=== PATIENT | male | born 1945 | race Caucasian/White ===

== ENCOUNTER 2017-08-17 17:03 | Inpatient (IN) | payer MEDICARE, MEDICAID ==
--- NOTE | 2017-08-17 17:24 | ED Physician Chart ---
ED Chief Complaint/HPI - Patient Information Date Seen:: 08/17/17 Time Seen:: 17:05 Chief Complaint:: Pt is here for medical clearance for psych admission. History of Present Illness:: Pt has h/o schizophrenia and was brought in by ambulance from nursing facility because pt has been noticed to have aggressive behavior. Pt appears to be comfortable without distress. Pt denies any bodily pain or discomfort. Pt is not fully cooperative; thus, H & P are limited. Allergies:: Allergies Allergy/AdvReac Type Severity Reaction Status Date / Time MDX Penicillin [Penicillin] Allergy Verified 01/01/13 15:33 Vitals:: see Nurse Note. Historian:: Patient Family MD/PCP:: Dr. Cooper LMP:: N/A Review:: Nurse's Note Reviewed, Transfer documents Reviewed ED Review of Systems - Review of Systems General/Constitutional: No fever, No chills, No weight loss, No weakness, No edema, No loss of appetite Skin: No rash, No bruising Head: No headache, No light-headedness Eyes: No loss of vision, No pain ENT: No earache, No nasal drainage, No sore throat Neck: No neck pain, No swelling, No thyromegaly, No stiffness Cardio Vascular: No chest pain, No palpitations, No edema Pulmonary: No SOB, No cough, No wheezing GI: No nausea, No vomiting, No diarrhea, No pain G/U: No dysuria, No frequency, No hematuria Musculoskeletal: No bone or joint pain Endocrine: No polyuria, No polydipsia Psychiatric: Prior psych history, No depression, No anxiety, No suicidal ideation, No homicidal ideation, No auditory hallucination, No visual hallucination Hematopoietic: No bruising, No lymphadenopathy Allergic/Immuno: No urticaria, No angioedema Neurological: No syncope, No focal symptoms, No weakness, No paresthesia, No headache, No seizure, No dizziness ED Past Medical History - Past Medical History Past Medical History: HTN, DM, CHF, Dyslipidemia, Other (Atrial fibrillation, chronic anemia) Family History: Diabetes Melitus (Mother.), HTN (father) Social History: Non Smoker, No Alcohol, No Drug Use, Single, Care Facility Employment:: Retired. Surgical History: other (L hip surgery in the 70's) Psychiatricy History: Schizophrenia Medication: Reviewed Family Medical History - Family Member Mother History Unknown: Yes ED Physical Exam - Physical Examination General/Constitutional: Awake, Well-developed, well-nourished, Alert, No distress, Non-toxic appearing Other Gen/Cons comments:: Breathes comfortably, speaks clearly, but pt is not fully cooperative. Head: Atraumatic Eyes: Lids, conjuctiva normal, PERRL, EOMI Skin: No ecchymosis, Well hydrated, No lymphadenopathy ENMT: External ears, nose nl, Nasal exam nl, Oropharynx nl Neck: Nontender, Full ROM w/o pain, No JVD, No nuchal rigidity, No mass, No stridor Respiratory: Nl effort/Exclusion, Clear to Auscultation, No Wheeze/Rhonchi/Rales Cardio Vascular: RRR, No murmur, gallop, rubs GI: No tenderness/rebounding/guarding, No organomegaly, No hernia, Normal BS's, Nondistended, No mass/bruits Other GI comments:: Abdomen is obese but soft. Extremities: No tenderness or effusion, No edema Neuro/Psych: Alert/oriented (knows his name, that he is in hospital, and that it is August.) Other Neuro/Psych comments:: Spontaneous movements noticed in all 4 extremities. Pt does not cooperate for full neurological exam. ED Labs/Radiology/EKG Results - Lab Results Results: Laboratory Tests 08/17/17 08/17/17 08/17/17 17:41 17:41 17:41 WBC 6.1 D RBC 5.52 Hgb 13.7 Hct 42.8 MCV 77.6 L MCH 24.9 L MCHC Differential 32.1 RDW 15.3 Plt Count 204 MPV 8.9 Neutrophils % 61.0 Lymphocytes % 26.3 Monocytes % 8.9 Eosinophils % 3.5 Basophils % 0.3 PT 9.7 INR 0.93 PTT (Actin FS) 25.3 L Sodium 136 Potassium 4.1 Chloride 102 Carbon Dioxide 30.0 Anion Gap 8.1 BUN 11 Creatinine 1.0 Est GFR ( Amer) TNP Est GFR (Non-Af Amer) TNP BUN/Creatinine Ratio 11.0 Glucose 92 Calcium 9.4 Total Bilirubin 0.5 AST 26 ALT 30 Alkaline Phosphatase 80 Total Protein 7.2 Albumin 4.2 Globulin 3.0 Albumin/Globulin Ratio 1.4 Valproic Acid 08/17/17 17:41 WBC RBC Hgb Hct MCV MCH MCHC Differential RDW Plt Count MPV Neutrophils % Lymphocytes % Monocytes % Eosinophils % Basophils % PT INR PTT (Actin FS) Sodium Potassium Chloride Carbon Dioxide Anion Gap BUN Creatinine Est GFR ( Amer) Est GFR (Non-Af Amer) BUN/Creatinine Ratio Glucose Calcium Total Bilirubin AST ALT Alkaline Phosphatase Total Protein Albumin Globulin Albumin/Globulin Ratio Valproic Acid 12.2 L Urinalysis is pending. - EKG Interpretations EKG Time:: 17:30 Rate & Rhythm: NSR with VR 61 Comments:: RAD. No acute ischemic changes. ED Septic Shock - . Is Septic Shock (SBP<90, OR Lactate>4 mmol\L) present?: No ED Reassessment (Disposition) - Reassessment Reassessment:: 1820 Pt remains stable and comfortable. EKG and available lab findings have been reviewed with pt. Management plan has been discussed. Pt is medically cleared for Geropsych admission. In house physician Dr. Nassar is to follow on remaining lab result: urinalysis and to provide further medical care. - Diagnosis Diagnosis:: Schizophrenia with aggressive behavior. HTN, stable. DM, stable. - Patient Disposition Admitted to:: [facility] Admitting Medical Physician:: Abdullahi Nassar Admitting Psych Physician:: Navya Dodge Time:: 18:25 Condition at Disposition:: Stable
[2017-08-17 17:51] LABS: % BASOPHILS 0.3 % (0.0-2.0); % EOSINOPHILS 3.5 % (0.0-5.0); % LYMPHOCYTES 26.3 % (20.0-50.0); % MONOCYTES 8.9 % (2.0-10.0); EOSINOPHILE ABSOLUTE 0.2 Th/cmm (0.1-0.4); HEMATOCRIT 42.8 % (41.0-60); HEMOGLOBIN 13.7 gm/dL (12-16); LYMPHOCYTE ABSOLUTE 1.6 Th/cmm (1.5-3.0); MEAN CELL VOLUME 77.6 fl (80-99); MEAN CORPUSCULAR HEMOGLOBIN 24.9 pg (27.0-31.0); MEAN CORPUSCULAR HGB CONC 32.1 pg (28.0-36.0); MEAN PLATELET VOLUME 8.9 fl; MONOCYTE ABSOLUTE 0.5 Th/cmm (0.3-1.0); NEUTROPHILE ABSOLUTE 3.8 Th/cmm (1.8-8.0); PLATELET COUNT 204 Th/cmm (150-400); RED BLOOD COUNT 5.52 Mil/cmm (3.80-5.80); RED CELL DISTRIBUTION WIDTH 15.3 % (11.5-20.0)
[2017-08-17 17:54] LABS: WHITE BLOOD COUNT 6.1 Th/cmm (4.8-10.8)
[2017-08-17 18:02] LABS: INR 0.93 (0.5-1.4); PROTHROMBIN TIME (TEST) 9.7 SECONDS (9.5-11.5)
[2017-08-17 18:04] LABS: ALB/GLOB RATIO 1.4 (1.0-1.8); ALBUMIN 4.2 gm/dL (4.2-5.5); ALKALINE PHOSPHATASE 80 U/L (34-104); ANION GAP 8.1 (7.0-16.0); BILIRUBIN,TOTAL 0.5 mg/dL (0.3-1.0); BUN - UREA NITROGEN 11 mg/dL (7-25); CALCIUM SERUM 9.4 mg/dL (8.6-10.3); CHLORIDE 102 mEq/L (98-107); GLUCOSE 92 mg/dL (70-105); POTASSIUM SERUM 4.1 mEq/L (3.5-5.1); SGOT 26 U/L (13-39); SGPT/ALT 30 U/L (7-52); SODIUM SERUM 136 mEq/L (136-145); TOTAL PROTEIN,SERUM 7.2 gm/dL (6.0-8.3)
[2017-08-17 23:21] VITALS: BP 112/72
[2017-08-18] MEDS ORDERED: Ferrous Sulfate 325 MG TAB PO SCH (09:00)
[2017-08-18] MEDS: Fish Oil 1,000 MG SGL PO SCH ×2 (09:35→16:45)
[2017-08-18] MEDS: Potassium Chloride 10 mEq ER Tab PO SCH (09:41)
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
[2017-08-19] MEDS: Fish Oil 1,000 MG SGL PO SCH ×2 (08:37→16:58)
[2017-08-19] MEDS: Potassium Chloride 10 mEq ER Tab PO SCH (08:39)
--- NOTE | 2017-08-19 09:24 | General Progress Note ---
Subjective - Review of Systems Subjective: Patient is seen and examined. No new complaints. Objective - Results Result Diagrams: 08/17/17 17:41 08/17/17 17:41 Recent Labs: Laboratory Last Values WBC 6.1 Th/cmm (4.8-10.8) D 08/17/17 17:41 RBC 5.52 Mil/cmm (3.80-5.80) 08/17/17 17:41 Hgb 13.7 gm/dL (12-16) 08/17/17 17:41 Hct 42.8 % (41.0-60) 08/17/17 17:41 MCV 77.6 fl (80-99) L 08/17/17 17:41 MCH 24.9 pg (27.0-31.0) L 08/17/17 17:41 MCHC Differential 32.1 pg (28.0-36.0) 08/17/17 17:41 RDW 15.3 % (11.5-20.0) 08/17/17 17:41 Plt Count 204 Th/cmm (150-400) 08/17/17 17:41 MPV 8.9 fl 08/17/17 17:41 Neutrophils % 61.0 % (40.0-80.0) 08/17/17 17:41 Lymphocytes % 26.3 % (20.0-50.0) 08/17/17 17:41 Monocytes % 8.9 % (2.0-10.0) 08/17/17 17:41 Eosinophils % 3.5 % (0.0-5.0) 08/17/17 17:41 Basophils % 0.3 % (0.0-2.0) 08/17/17 17:41 PT 9.7 SECONDS (9.5-11.5) 08/17/17 17:41 INR 0.93 (0.5-1.4) 08/17/17 17:41 PTT (Actin FS) 25.3 SECONDS (26.0-38.0) L 08/17/17 17:41 Sodium 136 mEq/L (136-145) 08/17/17 17:41 Potassium 4.1 mEq/L (3.5-5.1) 08/17/17 17:41 Chloride 102 mEq/L (98-107) 08/17/17 17:41 Carbon Dioxide 30.0 mEq/L (21.0-31.0) 08/17/17 17:41 Anion Gap 8.1 (7.0-16.0) 08/17/17 17:41 BUN 11 mg/dL (7-25) 08/17/17 17:41 Creatinine 1.0 mg/dL (0.7-1.3) 08/17/17 17:41 Est GFR ( Amer) TNP 08/17/17 17:41 Est GFR (Non-Af Amer) TNP 08/17/17 17:41 BUN/Creatinine Ratio 11.0 08/17/17 17:41 Glucose 92 mg/dL (70-105) 08/17/17 17:41 Calcium 9.4 mg/dL (8.6-10.3) 08/17/17 17:41 Total Bilirubin 0.5 mg/dL (0.3-1.0) 08/17/17 17:41 AST 26 U/L (13-39) 08/17/17 17:41 ALT 30 U/L (7-52) 08/17/17 17:41 Alkaline Phosphatase 80 U/L (34-104) 08/17/17 17:41 Total Protein 7.2 gm/dL (6.0-8.3) 08/17/17 17:41 Albumin 4.2 gm/dL (4.2-5.5) 08/17/17 17:41 Globulin 3.0 gm/dL 08/17/17 17:41 Albumin/Globulin Ratio 1.4 (1.0-1.8) 08/17/17 17:41 Valproic Acid 12.2 ug/mL (50.0-100.0) L 08/17/17 17:41 - Physical Exam Vitals and I&O: Vital Signs Temp 96.5 F 08/19/17 05:43 Pulse 65 08/19/17 08:40 Resp 19 08/19/17 05:43 BP 125/76 08/19/17 08:40 Pulse Ox 99 08/19/17 05:43 Intake & Output 08/18/17 08/19/17 08/19/17 18:59 06:59 18:59 Intake Total 1500 180 Balance 1500 180 Intake: Oral 1500 180 Other: # Voids 4 2 # Bowel Movements 0 Active Medications: Current Medications Aspirin (Ecotrin) 81 mg PO DAILY [facility] Stop: 10/17/17 08:59 Last Admin: 08/18/17 09:35 Dose: 81 mg Atorvastatin Calcium (Lipitor) 40 mg PO HS [facility] Stop: 10/16/17 20:59 Last Admin: 08/18/17 21:38 Dose: 40 mg Carvedilol (Coreg) 3.125 mg PO BID [facility] Stop: 10/17/17 08:59 Last Admin: 08/19/17 08:37 Dose: 3.125 mg Clopidogrel Bisulfate (Plavix) 75 mg PO DAILY [facility] Stop: 10/17/17 08:59 Last Admin: 08/19/17 08:38 Dose: 75 mg Divalproex Sodium (Depakote Dr) 125 mg PO BID [facility] PRN Reason: Protocol Stop: 10/17/17 08:59 Last Admin: 08/19/17 08:40 Dose: 125 mg Docusate Sodium (Colace) 200 mg PO DAILY [facility] Stop: 10/17/17 08:59 Last Admin: 08/19/17 08:38 Dose: 200 mg Fish Oil ([place] 3) 1,000 mg PO BID [facility] Stop: 10/17/17 08:59 Last Admin: 08/19/17 08:37 Dose: 1,000 mg Furosemide (Lasix) 20 mg PO DAILY [facility] Stop: 10/17/17 08:59 Last Admin: 08/19/17 08:38 Dose: 20 mg Lisinopril (Zestril) 5 mg PO DAILY [facility] Stop: 10/17/17 08:59 Last Admin: 08/19/17 08:40 Dose: 5 mg Lorazepam (Ativan) 0.5 mg PO TID PRN; Protocol PRN Reason: Anxiety Stop: 10/16/17 20:15 Nitroglycerin (Nitrostat) 0.4 mg SL PRN PRN PRN Reason: Chest Pain Stop: 10/16/17 20:15 Potassium Chloride (Klor-Con) 10 meq PO DAILY [facility] Stop: 10/17/17 08:59 Last Admin: 08/19/17 08:39 Dose: 10 meq Risperidone (Risperdal) 1 mg PO BID [facility] PRN Reason: Protocol Stop: 10/17/17 08:59 Last Admin: 08/19/17 08:40 Dose: 1 mg Senna (Senna) 8.6 mg PO BID [facility] Stop: 10/17/17 08:59 Last Admin: 08/19/17 08:37 Dose: 8.6 mg General: Alert, Cooperative, No acute distress HEENT: Atraumatic, PERRLA, EOMI, Mucous membr. moist/pink Neck: Supple, JVD Cardiovascular: Regular rate, Normal S1, Normal S2 Lungs: Clear to auscultation Abdomen: Bowel sounds, Soft, Distended, Obese Extremities: Other (chronic venous stasis changes on his right leg.) Neurological: Other (right-sided weakness more pronounced from lower extremity than upper extremity.) Skin: Rash Psych/Mental Status: Other (labile mood.) Assessment/Plan - Assessment Assessment: Paroxysmal atrial fibrillation. Coronary artery disease status post stent placement. Hypertension. CVA with right-sided weakness. DJD. Psychotic disorder. Hyperlipidemia. History of congestive heart failure. High risk for fall. Chronic venous stasis changes on right lower extremity. Decline in self-care. - Plan Plan: Rate control. Beta shira. Statin. Nitrate. Anticoagulation therapy. Monitor vitals. Fall precaution. General nursing care. Psychiatric medication and followed by psychiatrist. Follow transportation consultant recommendation. Care plan reviewed and discussed with staff.
--- NOTE | 2017-08-20 02:05 | Progress Notes ---
DATE: 08/19/2017 SUBJECTIVE: Chart reviewed and the patient interviewed. Also discussed the patient's condition with the staff and reviewed records and labs. The patient still have episodes of irritability and agitation. Also, he is still aggressive and is still at times, threatening others. Also, he still has mood swings and at times seems to be calm and cooperative and other times is agitated. Otherwise, the patient is compliant with taking his medications and Risperdal was increased to 1 mg twice a day with no side effects. Also, continue to take Depakote in a dose of 125 mg twice a day. ASSESSMENT: The patient is still aggressive and can be dangerous to others. TREATMENT PLAN: Continue to monitor his behavior and his condition closely. Also, continue to work on his irritability and poor impulse control. Also, working on discharge plans and possible placement issue, but the patient also might return back to [facility]. JOB# [id number]
[2017-08-20] MEDS: Potassium Chloride 10 mEq ER Tab PO SCH (09:16)
[2017-08-20] MEDS: Fish Oil 1,000 MG SGL PO SCH ×2 (09:17→17:41)
--- NOTE | 2017-08-20 10:22 | General Progress Note ---
Subjective - Review of Systems Subjective: Patient is seen and examined. No new complaints. Eating his breakfast. Objective - Results Result Diagrams: 08/17/17 17:41 08/17/17 17:41 Recent Labs: Laboratory Last Values WBC 6.1 Th/cmm (4.8-10.8) D 08/17/17 17:41 RBC 5.52 Mil/cmm (3.80-5.80) 08/17/17 17:41 Hgb 13.7 gm/dL (12-16) 08/17/17 17:41 Hct 42.8 % (41.0-60) 08/17/17 17:41 MCV 77.6 fl (80-99) L 08/17/17 17:41 MCH 24.9 pg (27.0-31.0) L 08/17/17 17:41 MCHC Differential 32.1 pg (28.0-36.0) 08/17/17 17:41 RDW 15.3 % (11.5-20.0) 08/17/17 17:41 Plt Count 204 Th/cmm (150-400) 08/17/17 17:41 MPV 8.9 fl 08/17/17 17:41 Neutrophils % 61.0 % (40.0-80.0) 08/17/17 17:41 Lymphocytes % 26.3 % (20.0-50.0) 08/17/17 17:41 Monocytes % 8.9 % (2.0-10.0) 08/17/17 17:41 Eosinophils % 3.5 % (0.0-5.0) 08/17/17 17:41 Basophils % 0.3 % (0.0-2.0) 08/17/17 17:41 PT 9.7 SECONDS (9.5-11.5) 08/17/17 17:41 INR 0.93 (0.5-1.4) 08/17/17 17:41 PTT (Actin FS) 25.3 SECONDS (26.0-38.0) L 08/17/17 17:41 Sodium 136 mEq/L (136-145) 08/17/17 17:41 Potassium 4.1 mEq/L (3.5-5.1) 08/17/17 17:41 Chloride 102 mEq/L (98-107) 08/17/17 17:41 Carbon Dioxide 30.0 mEq/L (21.0-31.0) 08/17/17 17:41 Anion Gap 8.1 (7.0-16.0) 08/17/17 17:41 BUN 11 mg/dL (7-25) 08/17/17 17:41 Creatinine 1.0 mg/dL (0.7-1.3) 08/17/17 17:41 Est GFR ( Amer) TNP 08/17/17 17:41 Est GFR (Non-Af Amer) TNP 08/17/17 17:41 BUN/Creatinine Ratio 11.0 08/17/17 17:41 Glucose 92 mg/dL (70-105) 08/17/17 17:41 Calcium 9.4 mg/dL (8.6-10.3) 08/17/17 17:41 Total Bilirubin 0.5 mg/dL (0.3-1.0) 08/17/17 17:41 AST 26 U/L (13-39) 08/17/17 17:41 ALT 30 U/L (7-52) 08/17/17 17:41 Alkaline Phosphatase 80 U/L (34-104) 08/17/17 17:41 Total Protein 7.2 gm/dL (6.0-8.3) 08/17/17 17:41 Albumin 4.2 gm/dL (4.2-5.5) 08/17/17 17:41 Globulin 3.0 gm/dL 08/17/17 17:41 Albumin/Globulin Ratio 1.4 (1.0-1.8) 08/17/17 17:41 Valproic Acid 12.2 ug/mL (50.0-100.0) L 08/17/17 17:41 - Physical Exam Vitals and I&O: Vital Signs Temp 96.5 F 08/20/17 04:00 Pulse 57 08/20/17 09:17 Resp 18 08/20/17 04:00 BP 112/71 08/20/17 09:17 Pulse Ox 98 08/20/17 04:00 Intake & Output 08/19/17 08/20/17 08/20/17 18:59 06:59 18:59 Intake Total 1200 Balance 1200 Intake: Oral 1200 Other: # Bowel Movements 1 Active Medications: Current Medications Aspirin (Ecotrin) 81 mg PO DAILY [facility] Stop: 10/17/17 08:59 Last Admin: 08/20/17 09:16 Dose: 81 mg Atorvastatin Calcium (Lipitor) 40 mg PO HS [facility] Stop: 10/16/17 20:59 Last Admin: 08/19/17 21:10 Dose: 40 mg Carvedilol (Coreg) 3.125 mg PO BID [facility] Stop: 10/17/17 08:59 Last Admin: 08/19/17 16:58 Dose: 3.125 mg Clopidogrel Bisulfate (Plavix) 75 mg PO DAILY [facility] Stop: 10/17/17 08:59 Last Admin: 08/19/17 08:38 Dose: 75 mg Divalproex Sodium (Depakote Dr) 250 mg PO BID [facility] PRN Reason: Protocol Stop: 10/17/17 08:59 Last Admin: 08/20/17 09:16 Dose: 250 mg Docusate Sodium (Colace) 200 mg PO DAILY [facility] Stop: 10/17/17 08:59 Last Admin: 08/20/17 09:16 Dose: 200 mg Fish Oil ([place] 3) 1,000 mg PO BID [facility] Stop: 10/17/17 08:59 Last Admin: 08/20/17 09:17 Dose: 1,000 mg Furosemide (Lasix) 20 mg PO DAILY [facility] Stop: 10/17/17 08:59 Last Admin: 08/20/17 09:17 Dose: Not Given Lisinopril (Zestril) 5 mg PO DAILY [facility] Stop: 10/17/17 08:59 Last Admin: 08/20/17 09:17 Dose: Not Given Lorazepam (Ativan) 0.5 mg PO TID PRN; Protocol PRN Reason: Anxiety Stop: 10/16/17 20:15 Nitroglycerin (Nitrostat) 0.4 mg SL PRN PRN PRN Reason: Chest Pain Stop: 10/16/17 20:15 Potassium Chloride (Klor-Con) 10 meq PO DAILY [facility] Stop: 10/17/17 08:59 Last Admin: 08/20/17 09:16 Dose: 10 meq Risperidone (Risperdal) 1 mg PO BID [facility] PRN Reason: Protocol Stop: 10/17/17 08:59 Last Admin: 08/20/17 09:16 Dose: 1 mg Senna (Senna) 8.6 mg PO BID [facility] Stop: 10/17/17 08:59 Last Admin: 08/20/17 09:16 Dose: 8.6 mg General: Alert, Cooperative, No acute distress HEENT: Atraumatic, PERRLA, EOMI, Mucous membr. moist/pink Neck: Supple, JVD Cardiovascular: Regular rate, Normal S1, Normal S2 Lungs: Clear to auscultation Abdomen: Bowel sounds, Soft, Distended, Obese Extremities: Other (chronic venous stasis changes on his right leg.) Neurological: Other (right-sided weakness more pronounced from lower extremity than upper extremity.) Skin: Rash Psych/Mental Status: Other (labile mood.) Assessment/Plan - Assessment Assessment: Paroxysmal atrial fibrillation high risk for fall anticoagulation contraindicated. Coronary artery disease status post stent placement. Hypertension. CVA with right-sided weakness. DJD. Psychotic disorder. Hyperlipidemia. History of congestive heart failure. High risk for fall. Chronic venous stasis changes on right lower extremity. Decline in self-care. - Plan Plan: Rate control. Beta shira. Statin. Nitrate. Anticoagulation therapy with asa. Monitor vitals. Fall precaution. General nursing care. Psychiatric medication and followed by psychiatrist. Follow mobile sales consultant recommendation. Care plan reviewed and discussed with staff.
--- NOTE | 2017-08-20 23:43 | Progress Notes ---
DATE: 08/20/2017 SUBJECTIVE: Chart reviewed and patient interviewed. Also discussed the patient's condition with the staff and reviewed records and labs. The patient's affect is slightly brighter, but the patient is still at times seems to be slightly confused. The patient seems to be less argumentative and easier to redirect him. He denies any intention to harm himself or others. Depakote blood level came back to be 12.2, which is below therapeutic level. ASSESSMENT: The patient is still agitated and psychotic. TREATMENT PLAN: We will continue monitoring his behavior and his condition closely. Also, increase Depakote to 250 mg twice a day and we will continue to follow up closely. JOB# [id number]
[2017-08-21] MEDS: Fish Oil 1,000 MG SGL PO SCH ×2 (08:46→16:05)
[2017-08-21] MEDS: Potassium Chloride 10 mEq ER Tab PO SCH (08:48)
--- NOTE | 2017-08-21 10:30 | General Progress Note ---
Subjective - Review of Systems Subjective: Patient is seen and examined. No new complaints. Objective - Results Result Diagrams: 08/17/17 17:41 08/17/17 17:41 Recent Labs: Laboratory Last Values WBC 6.1 Th/cmm (4.8-10.8) D 08/17/17 17:41 RBC 5.52 Mil/cmm (3.80-5.80) 08/17/17 17:41 Hgb 13.7 gm/dL (12-16) 08/17/17 17:41 Hct 42.8 % (41.0-60) 08/17/17 17:41 MCV 77.6 fl (80-99) L 08/17/17 17:41 MCH 24.9 pg (27.0-31.0) L 08/17/17 17:41 MCHC Differential 32.1 pg (28.0-36.0) 08/17/17 17:41 RDW 15.3 % (11.5-20.0) 08/17/17 17:41 Plt Count 204 Th/cmm (150-400) 08/17/17 17:41 MPV 8.9 fl 08/17/17 17:41 Neutrophils % 61.0 % (40.0-80.0) 08/17/17 17:41 Lymphocytes % 26.3 % (20.0-50.0) 08/17/17 17:41 Monocytes % 8.9 % (2.0-10.0) 08/17/17 17:41 Eosinophils % 3.5 % (0.0-5.0) 08/17/17 17:41 Basophils % 0.3 % (0.0-2.0) 08/17/17 17:41 PT 9.7 SECONDS (9.5-11.5) 08/17/17 17:41 INR 0.93 (0.5-1.4) 08/17/17 17:41 PTT (Actin FS) 25.3 SECONDS (26.0-38.0) L 08/17/17 17:41 Sodium 136 mEq/L (136-145) 08/17/17 17:41 Potassium 4.1 mEq/L (3.5-5.1) 08/17/17 17:41 Chloride 102 mEq/L (98-107) 08/17/17 17:41 Carbon Dioxide 30.0 mEq/L (21.0-31.0) 08/17/17 17:41 Anion Gap 8.1 (7.0-16.0) 08/17/17 17:41 BUN 11 mg/dL (7-25) 08/17/17 17:41 Creatinine 1.0 mg/dL (0.7-1.3) 08/17/17 17:41 Est GFR ( Amer) TNP 08/17/17 17:41 Est GFR (Non-Af Amer) TNP 08/17/17 17:41 BUN/Creatinine Ratio 11.0 08/17/17 17:41 Glucose 92 mg/dL (70-105) 08/17/17 17:41 Calcium 9.4 mg/dL (8.6-10.3) 08/17/17 17:41 Total Bilirubin 0.5 mg/dL (0.3-1.0) 08/17/17 17:41 AST 26 U/L (13-39) 08/17/17 17:41 ALT 30 U/L (7-52) 08/17/17 17:41 Alkaline Phosphatase 80 U/L (34-104) 08/17/17 17:41 Total Protein 7.2 gm/dL (6.0-8.3) 08/17/17 17:41 Albumin 4.2 gm/dL (4.2-5.5) 08/17/17 17:41 Globulin 3.0 gm/dL 08/17/17 17:41 Albumin/Globulin Ratio 1.4 (1.0-1.8) 08/17/17 17:41 Valproic Acid 12.2 ug/mL (50.0-100.0) L 08/17/17 17:41 - Physical Exam Vitals and I&O: Vital Signs Temp 98.4 F 08/21/17 06:23 Pulse 81 08/21/17 08:48 Resp 20 08/21/17 06:23 BP 139/84 08/21/17 08:48 Pulse Ox 97 08/21/17 06:23 Intake & Output 08/20/17 08/21/17 08/21/17 18:59 06:59 18:59 Intake Total 120 Balance 120 Intake: Oral 120 Other: # Voids 3 # Bowel Movements 1 Active Medications: Current Medications Aspirin (Ecotrin) 81 mg PO DAILY JUDE Stop: 10/17/17 08:59 Last Admin: 08/21/17 08:47 Dose: 81 mg Atorvastatin Calcium (Lipitor) 40 mg PO HS JUDE Stop: 10/16/17 20:59 Last Admin: 08/20/17 20:58 Dose: 40 mg Carvedilol (Coreg) 3.125 mg PO BID JUDE Stop: 10/17/17 08:59 Last Admin: 08/21/17 08:48 Dose: 3.125 mg Clopidogrel Bisulfate (Plavix) 75 mg PO DAILY JUDE Stop: 10/17/17 08:59 Last Admin: 08/21/17 08:46 Dose: 75 mg Divalproex Sodium (Depakote Dr) 250 mg PO BID [facility] PRN Reason: Protocol Stop: 10/17/17 08:59 Last Admin: 08/21/17 08:48 Dose: 250 mg Docusate Sodium (Colace) 200 mg PO DAILY JUDE Stop: 10/17/17 08:59 Last Admin: 08/21/17 08:46 Dose: 200 mg Fish Oil ([place] 3) 1,000 mg PO BID JUDE Stop: 10/17/17 08:59 Last Admin: 08/21/17 08:46 Dose: 1,000 mg Furosemide (Lasix) 20 mg PO DAILY [facility] Stop: 10/17/17 08:59 Last Admin: 08/21/17 08:47 Dose: 20 mg Lisinopril (Zestril) 5 mg PO DAILY [facility] Stop: 10/17/17 08:59 Last Admin: 08/20/17 09:17 Dose: Not Given Lorazepam (Ativan) 0.5 mg PO TID PRN; Protocol PRN Reason: Anxiety Stop: 10/16/17 20:15 Nitroglycerin (Nitrostat) 0.4 mg SL PRN PRN PRN Reason: Chest Pain Stop: 10/16/17 20:15 Potassium Chloride (Klor-Con) 10 meq PO DAILY [facility] Stop: 10/17/17 08:59 Last Admin: 08/21/17 08:48 Dose: 10 meq Risperidone (Risperdal) 1 mg PO BID JUDE PRN Reason: Protocol Stop: 10/17/17 08:59 Last Admin: 08/21/17 08:48 Dose: 1 mg Senna (Senna) 8.6 mg PO BID [facility] Stop: 10/17/17 08:59 Last Admin: 08/21/17 08:48 Dose: 8.6 mg General: Alert, Cooperative, No acute distress HEENT: Atraumatic, PERRLA, EOMI, Mucous membr. moist/pink Neck: Supple, JVD Cardiovascular: Regular rate, Normal S1, Normal S2 Lungs: Clear to auscultation Abdomen: Bowel sounds, Soft, Distended, Obese Extremities: Other (chronic venous stasis changes on his right leg.) Neurological: Other (right-sided weakness more pronounced from lower extremity than upper extremity.) Skin: Rash Psych/Mental Status: Other (labile mood.) Assessment/Plan - Assessment Assessment: Paroxysmal atrial fibrillation high risk for fall anticoagulation contraindicated. Coronary artery disease status post stent placement. Hypertension. CVA with right-sided weakness. DJD. Psychotic disorder. Hyperlipidemia. History of congestive heart failure. High risk for fall. Chronic venous stasis changes on right lower extremity. Decline in self-care. - Plan Plan: Rate control. Beta shira. Simvastatin. Nitrate. Anticoagulation therapy. Monitor vitals and behavior. Fall precaution. General nursing care. Psychiatric medication and follow up on psychiatrist recommendations. Care plan reviewed and discussed with staff.
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
== END 2017-08-21 17:10 | disposition home or self-care (01) | DRG 885 ==
LOC: ER 17:03 → GERO 19:24 → UNDOADMIN 19:24 → UNDODISIN 08-21 17:10
PROVIDERS: ADMIT Psychiatry & Neurology Psychiatry; ATTEND Psychiatry & Neurology Psychiatry
DX: F31.64 Bipolar disorder, current episode mixed, severe, with psychotic features (principal); I48.0 Paroxysmal atrial fibrillation; I50.9 Heart failure, unspecified; I11.0 Hypertensive heart disease with heart failure; E11.9 Type 2 diabetes mellitus without complications; I69.351 Hemiplegia and hemiparesis following cerebral infarction affecting right dominant side; D64.9 Anemia, unspecified; E78.5 Hyperlipidemia, unspecified; I25.10 Atherosclerotic heart disease of native coronary artery without angina pectoris; M19.90 Unspecified osteoarthritis, unspecified site; I87.8 Other specified disorders of veins; K27.9 Peptic ulcer, site unspecified, unspecified as acute or chronic, without hemorrhage or perforation; N40.0 Benign prostatic hyperplasia without lower urinary tract symptoms; Z88.0 Allergy status to penicillin; Z83.3 Family history of diabetes mellitus; Z82.49 Family history of ischemic heart disease and other diseases of the circulatory system; Z91.81 History of falling; Z95.5 Presence of coronary angioplasty implant and graft; Z99.3 Dependence on wheelchair
CPT/HCPCS: 36415-UA; 80053-TC; 80164-TC; 85025-TC; 85610-TC; 93005; Z7610

== ENCOUNTER 2018-03-20 16:14 | Inpatient (IN) | payer MEDICARE, MEDICAID ==
--- NOTE | 2018-03-20 16:59 | ED Physician Chart ---
ED Chief Complaint/HPI - Patient Information Date Seen:: 03/20/18 Time Seen:: 16:25 Chief Complaint:: Leg Redness History of Present Illness:: onset x 2 weeks of increasing LE redness, erythema, pain, and swelling; no report of trauma, H/As, S/T, neck pain, C/P, SOB, cough, Abd. Pain, A/N/V/D/C, fever, chills, or urinary s/s Allergies:: Allergies Allergy/AdvReac Type Severity Reaction Status Date / Time clonazepam [From Klonopin] Allergy Verified 03/20/18 16:34 Penicillins [PCN] Allergy Verified 08/17/17 18:30 tramadol Allergy Verified 03/20/18 16:34 Vitals:: Vital Signs - 8 hr 03/20/18 16:26 Temp 99.8 F HR 114 RR 23 BP 147/81 O2 Sat % 97 Historian:: Patient, EMS Review:: Nurse's Note Reviewed, Old Chart Reviewed, EMS run form Reviewed <Bright Salgado - Last Filed: 03/20/18 19:11> - Patient Information Allergies:: Allergies Allergy/AdvReac Type Severity Reaction Status Date / Time clonazepam [From Klonopin] Allergy Verified 03/20/18 16:34 Penicillins [PCN] Allergy Verified 08/17/17 18:30 tramadol Allergy Verified 03/20/18 16:34 Vitals:: Vital Signs - 8 hr 03/20/18 03/20/18 16:26 18:55 Temp 99.8 F 99.6 F HR 114 103 RR 23 20 BP 147/81 163/124 O2 Sat % 97 96 <Shobha Alex - Last Filed: 03/20/18 20:43> ED Review of Systems - Review of Systems General/Constitutional: No fever, No chills, No weight loss, No weakness, No diaphoresis, No edema, No loss of appetite Skin: Skin lesions, Rash, No bruising Head: No headache, No light-headedness Eyes: No loss of vision, No pain, No diplopia ENT: No earache, No nasal drainage, No sore throat, No tinnitus Neck: No neck pain, No swelling, No thyromegaly, No stiffness, No mass noted Cardio Vascular: No chest pain, No palpitations, No PND, No orthopnea, edema Pulmonary: No SOB, No cough, No sputum, No wheezing GI: No nausea, No vomiting, No diarrhea, No pain, No melena, No hematochezia, No constipation, No hematemesis G/U: No dysuria, No frequency, No hematuria, No nacturia Musculoskeletal: No bone or joint pain, No back pain, No muscle pain Endocrine: No polyuria, No polydipsia Psychiatric: No prior psych history, No depression, No anxiety, No suicidal ideation, No homicidal ideation, No auditory hallucination, No visual hallucination Hematopoietic: No bruising, No lymphadenopathy Allergic/Immuno: No urticaria, No angioedema Neurological: No syncope, No focal symptoms, No weakness, No paresthesia, No headache, No seizure, No dizziness, No confusion, No vertigo <Bright Salgado - Last Filed: 03/20/18 19:11> ED Past Medical History - Past Medical History Obtainable: Yes Past Medical History: HTN, CHF, Dyslipidemia, Seizures, Arthritis Family History: HTN Social History: Smoker, No Alcohol, No Drug Use, Single, Care Facility Surgical History: None Psychiatricy History: None Medication: Reviewed <Brihgt Salgado Last Filed: 03/20/18 19:11> Family Medical History - Family Member Mother History Unknown: Yes Ethnicity: Unknown Living Status: Unknown Hx Family Cancer: (Unknown) Hx Family Coronary Artery Disease: (Unknown) Hx Family Congestive Heart Failure: (Unknown) Hx Family Hypertension: (Unknown) Hx Family Stroke: (Unknown) Hx Family Diabetes: (Unknown) Hx Family Seizures: (Unknown) Hx Family Dementia: (Unknown) Hx Family AIDS: (Unknown) Hx Family HIV: No Hx Family COPD: (Unknown) Hx Family Hepatitis: (Unknown) Hx Family Psychiatric Problems: (Unknown) Hx Family Tuberculosis: (Unknown) <BrendaBright vázquez Last Filed: 03/20/18 19:11> ED Physical Exam - Physical Examination General/Constitutional: Awake, Well-developed, well-nourished, Alert, No distress, GCS 15, Non-toxic appearing, Ambulatory Head: Atraumatic Eyes: Lids, conjuctiva normal, PERRL, EOMI Skin: No rash, No skin lesions, No ecchymosis, Well hydrated, No lymphadenopathy Other Skin comments:: + Bilateral LE Cellulitis; good NV functions ENMT: External ears, nose nl, TM canals nl, Nasal exam nl, Lips, teeth, gums nl , Oropharynx nl, Tonsils nl Neck: Nontender, Full ROM w/o pain, No JVD, No nuchal rigidity, No bruit, No mass, No stridor Other Neck comments:: no meningeal signs; supple; no cervical tenderness Respiratory: Nl effort/Exclusion, Clear to Auscultation, No Wheeze/Rhonchi/Rales Cardio Vascular: RRR, No murmur, gallop, rubs, NL S1 S2, Carotid/Femoral/Distal pulses equal bilaterally GI: No tenderness/rebounding/guarding, No organomegaly, No hernia, Normal BS's, Nondistended, No mass/bruits, No McBurney tenderness Other GI comments:: no pulsatile masses : No CVA tenderness Extremities: No tenderness or effusion, Full ROM, normal strength in all extremities, No edema, Normal digits & nails Neuro/Psych: Alert/oriented, DTR's symmetric, Normal sensory exam, Normal motor strength, Judgement/insight normal, Mood normal, Normal gait, No focal deficits Misc: Normal back, No paraspinal tenderness <Bright Salgado - Last Filed: 03/20/18 19:11> ED Labs/Radiology/EKG Results - Lab Results Comments:: U/A: + Pyuria; Na+: 133 - Radiology Results Comments:: no DVT - EKG Interpretations EKG Time:: 16:41 Rate & Rhythm: 107; ST Comments:: non-specific st-t changes <Bright Salgado - Last Filed: 03/20/18 19:11> - Lab Results Results: Laboratory Tests 03/20/18 03/20/18 03/20/18 16:48 16:48 16:48 WBC 8.8 RBC 4.72 Hgb 12.0 Hct 36.5 L MCV 77.2 L MCH 25.4 L MCHC Differential 32.9 RDW 16.2 Plt Count 307 MPV 7.9 Neutrophils % 70.5 Lymphocytes % 15.8 L Monocytes % 9.4 Eosinophils % 3.8 Basophils % 0.5 PT 9.8 INR 0.94 PTT (Actin FS) 25.4 L Sodium 133 L Potassium 4.5 Chloride 99 Carbon Dioxide 25.8 Anion Gap 12.7 BUN 25 Creatinine 1.2 Est GFR ( Amer) TNP Est GFR (Non-Af Amer) TNP BUN/Creatinine Ratio 20.8 Glucose 110 H Whole Bld Lactic Acid Calcium 9.0 Total Bilirubin 0.4 AST 25 ALT 20 Alkaline Phosphatase 70 Creatine Kinase 510 H CK-MB (CK-2) 4.6 Troponin I Total Protein 7.3 Albumin 3.9 L Globulin 3.4 Albumin/Globulin Ratio 1.2 Urine Source Urine Color Urine Clarity Urine pH Ur Specific [place] Urine Protein Urine Glucose (UA) Urine Ketones Urine Blood Urine Nitrate Urine Bilirubin Urine Urobilinogen Ur Leukocyte Esterase Urine RBC Urine WBC Ur Epithelial Cells Urine Bacteria 03/20/18 03/20/18 03/20/18 16:48 16:48 17:00 WBC RBC Hgb Hct MCV MCH MCHC Differential RDW Plt Count MPV Neutrophils % Lymphocytes % Monocytes % Eosinophils % Basophils % PT INR PTT (Actin FS) Sodium Potassium Chloride Carbon Dioxide Anion Gap BUN Creatinine Est GFR ( Amer) Est GFR (Non-Af Amer) BUN/Creatinine Ratio Glucose Whole Bld Lactic Acid 1.60 Calcium Total Bilirubin AST ALT Alkaline Phosphatase Creatine Kinase CK-MB (CK-2) Troponin I 0.05 Total Protein Albumin Globulin Albumin/Globulin Ratio Urine Source [place] Urine Color YELLOW Urine Clarity CLEAR Urine pH 6.0 Ur Specific [place] 1.015 Urine Protein NEGATIVE Urine Glucose (UA) NEGATIVE Urine Ketones NEGATIVE Urine Blood NEGATIVE Urine Nitrate NEGATIVE Urine Bilirubin NEGATIVE Urine Urobilinogen 0.2 Ur Leukocyte Esterase TRACE H Urine RBC 0-2 H Urine WBC 2-5 Ur Epithelial Cells OCCASIONAL Urine Bacteria NONE SEEN <Shobha Alex - Last Filed: 03/20/18 20:43> ED Assessment - Assessment Assessment/Comments:: verbal order of the bilateral lower extremity ultrasound is negative for deep venous thrombosis per video technician. Kyaw Blanc call out to Dr. Tompkins to admit this patient. Valproic acid was added onto the blood work. 19:51 p.m. Kyaw Blanc phone call to Dr. Tompkins at 19:58 p.m. to admit this patient. We are also calling [facility] since it lists that he takes Lorazepam and that he is allergic to Clonazepam. JMartello M.D. The phone lines are being changed over. We are repaging Dr. Tompkins to call us back on our cell phones. Verified with Catherine Kilpatrick (Jessica) that they do not give him anything else besides Depakote and Risperdal in the morning and [place] 10/325 every 6 hours. 20:40 p.m. Kyaw Tompkins answered our page at 20:42 p.m. He will admit the patient with the diagnoses of cellulitis and fever. Kyaw Blanc <Shobha Alex - Last Filed: 03/20/18 20:43> ED Septic Shock - . Is Septic Shock (SBP<90, OR Lactate>4 mmol\L) present?: No - <6hrs of presentation: Vital Signs: Vital Signs - 8 hr 03/20/18 16:26 Temp 99.8 F HR 114 RR 23 BP 147/81 O2 Sat % 97 <Bright Salgado - Last Filed: 03/20/18 19:11> - . Is Septic Shock (SBP<90, OR Lactate>4 mmol\L) present?: No - <6hrs of presentation: Vital Signs: Vital Signs - 8 hr 03/20/18 03/20/18 16:26 18:55 Temp 99.8 F 99.6 F HR 114 103 RR 23 20 BP 147/81 163/124 O2 Sat % 97 96 <Shobha Alex - Last Filed: 03/20/18 20:43> ED Reassessment (Disposition) - Reassessment Reassessment Condition:: Improved - Diagnosis Diagnosis:: Cellulitis; Hyponatremia; UTI <Bright Salgado - Last Filed: 03/20/18 19:11> - Diagnosis Diagnosis:: Coronary artery Disesase Hypertension Psychotic Disorder Wheelchair bound Chronic venous stasis changes of right lower extremity <Shobha Alex - Last Filed: 03/20/18 20:43>
[2018-03-20 17:05] LABS: % BASOPHILS 0.5 % (0.0-2.0); % EOSINOPHILS 3.8 % (0.0-5.0); % LYMPHOCYTES 15.8 % (20.0-50.0); % MONOCYTES 9.4 % (2.0-10.0); % NEUTROPHILS 70.5 % (40.0-80.0); EOSINOPHILE ABSOLUTE 0.3 Th/cmm (0.1-0.4); HEMATOCRIT 36.5 % (41.0-60); LYMPHOCYTE ABSOLUTE 1.4 Th/cmm (1.5-3.0); MEAN CELL VOLUME 77.2 fl (80-99); MEAN CORPUSCULAR HEMOGLOBIN 25.4 pg (27.0-31.0); MEAN CORPUSCULAR HGB CONC 32.9 pg (28.0-36.0); MEAN PLATELET VOLUME 7.9 fl; MONOCYTE ABSOLUTE 0.8 Th/cmm (0.3-1.0); NEUTROPHILE ABSOLUTE 6.3 Th/cmm (1.8-8.0); PLATELET COUNT 307 Th/cmm (150-400); RED BLOOD COUNT 4.72 Mil/cmm (3.80-5.80); RED CELL DISTRIBUTION WIDTH 16.2 % (11.5-20.0); WHITE BLOOD COUNT 8.8 Th/cmm (4.8-10.8)
[2018-03-20 17:12] LABS: URINE MICROSCOPIC INDICATED? YES; URINE SOURCE MIDSTREAM
[2018-03-20 17:14] LABS: URINE BILIRUBIN NEGATIVE (NEGATIVE); URINE BLOOD NEGATIVE (NEGATIVE); URINE GLUCOSE (UA) NEGATIVE (NEGATIVE); URINE KETONE NEGATIVE (NEGATIVE); URINE LEUKOCYTE ESTERASE TRACE (NEGATIVE); URINE NITRATE NEGATIVE (NEGATIVE); URINE PROTEIN NEGATIVE (NEGATIVE); URINE UROBILINOGEN 0.2 E.U./dL (0.2 - 1.0)
[2018-03-20 17:15] LABS: INR 0.94 (0.5-1.4); PROTHROMBIN TIME (TEST) 9.8 SECONDS (9.5-11.5)
[2018-03-20 17:25] LABS: ALB/GLOB RATIO 1.2 (1.0-1.8); ALBUMIN 3.9 gm/dL (4.2-5.5); ALKALINE PHOSPHATASE 70 U/L (34-104); ANION GAP 12.7 (7.0-16.0); BILIRUBIN,TOTAL 0.4 mg/dL (0.3-1.0); BUN - UREA NITROGEN 25 mg/dL (7-25); CARBON DIOXIDE 25.8 mEq/L (21.0-31.0); CHLORIDE 99 mEq/L (98-107); CREATININE - SERUM 1.2 mg/dL (0.7-1.3); CREATININE KINASE 510 U/L (30-223); GLUCOSE 110 mg/dL (70-105); POTASSIUM SERUM 4.5 mEq/L (3.5-5.1); SGOT 25 U/L (13-39); SGPT/ALT 20 U/L (7-52); SODIUM SERUM 133 mEq/L (136-145); TOTAL PROTEIN,SERUM 7.3 gm/dL (6.0-8.3)
[2018-03-20 17:34] LABS: URINE CLARITY CLEAR (CLEAR); URINE COLOR YELLOW
[2018-03-20 17:35] LABS: URINE BACTERIA NONE SEEN /hpf (NONE SEEN); URINE EPITHELIAL CELLS OCCASIONAL /lpf (FEW); URINE RBC 0-2 /hpf (0-5)
[2018-03-20] MEDS ORDERED: Haloperidol Lactate 5 mg/mL 1mL Vial IVP ONE (18:12)
[2018-03-20] MEDS ORDERED: Haloperidol Lactate 5 mg/mL 1mL Vial ONE (18:39)
[2018-03-20] MEDS ORDERED: Bacitracin pkt 1 gm Pkt TP STA (20:33)
[2018-03-20] MEDS ORDERED: STERILE WATER FOR IRRIGATION IR ONE (20:34)
[2018-03-20] MEDS ORDERED: Bacitracin pkt 1 gm Pkt TP ONE (20:34)
[2018-03-20] MEDS ORDERED: Hydrocodone/APAP 10 mg/325 mg Tab PO STA (20:36)
[2018-03-20] MEDS ORDERED: Hydrocodone/APAP 10 mg/325 mg Tab ONE (20:47)
[2018-03-20] MEDS ORDERED: Ipratropium Neb 0.5 mg/2.5 mL UD HHN PRN (22:24)
[2018-03-20] MEDS ORDERED: Maalox 30 mL Cup PO PRN (22:24)
[2018-03-20] MEDS ORDERED: Diltiazem 5 mg/mL 5mL Vial IVP PRN (22:24)
[2018-03-20] MEDS ORDERED: guaiFENesin 200 MG/10 ML UDC PO PRN (22:24)
[2018-03-20] MEDS ORDERED: Albuterol Nebulizer 2.5mg/3mL HHN PRN (22:24)
[2018-03-20 22:39] VITALS: BP 130/76
[2018-03-21] MEDS: Levofloxacin 500mg/100mL 500 MG/100 ML BAG IV SCH (00:21)
[2018-03-21] MEDS: Hydrocodone/APAP 10 mg/325 mg Tab PO PRN (02:17)
[2018-03-21] MEDS: metroNIDAZOLE 500mg/NS 100mL 500 MG/100 ML BAG IV SCH ×3 (05:31→22:18)
[2018-03-21] MEDS ORDERED: Non-Formulary Item 1 EA (Valbenazine Tosylate [Ingrezza] 40 MG) PO SCH (09:00)
--- NOTE | 2018-03-21 09:27 | Diagnostic Imaging Report ---
Exam: Ultrasound examination deep venous circulation lower extremity is bilaterally. HISTORY: DVT. Findings: Real-time ultrasound examination of lower extremities was performed multiple planes utilizing color Doppler technique. The study demonstrates normal compressibility and augmentation of the deep venous system right lower extremity. The posterior tibial vein was not visualized. There is limited examination of the left lower extremity patient was uncooperative and exam was terminated. IMPRESSION: Essentially unremarkable examination of the right lower extremity. Incomplete examination of the left lower extremity . Follow-up examination is recommended.
--- NOTE | 2018-03-21 09:27 | Diagnostic Imaging Report ---
Portable chest x-ray Time: 6039 hours History: Pain Allowing for portable technique the heart size is normal. No focal pulmonary parenchymal processes. No hilar or mediastinal abnormalities. Impression: No acute abnormalities.
[2018-03-21] MEDS: Fish Oil 1,000 MG SGL PO SCH ×2 (10:07→17:47)
[2018-03-21] MEDS: Potassium Chloride 10 mEq ER Tab PO SCH (10:11)
--- NOTE | 2018-03-21 15:13 | History & Physical ---
ADMIT DATE: 03/21/2018 CHIEF COMPLAINT: Bilateral leg pain. HISTORY OF PRESENT ILLNESS: This is a 72-year-old male with history of CAD, paroxysmal atrial fibrillation, hypertension, hypercholesterolemia, history of stroke, admitted from nursing facility secondary to worsening leg pain. The patient apparently treated for cellulitis, but has not improved. Failed outpatient therapy. PAST MEDICAL HISTORY: As mentioned in history of present illness. PAST SURGICAL HISTORY: Status post stent. The patient is not a best historian. ALLERGIES: PENICILLIN, ____, TRAMADOL. MEDICATIONS: The patient was previously on p.o. antibiotic, Plavix, albuterol, aspirin, atorvastatin, Lopid, Toradol, Depakote, Colace, fish oil, Lasix, lisinopril, potassium, Seroquel, Risperdal. FAMILY HISTORY: Noncontributory. SOCIAL HISTORY: The patient is a [place] [facility] patient requiring 24-hour total care. REVIEW OF SYSTEMS: This is limited secondary to pain and comatose state. He is keep saying no to all my questions including any symptoms. It is little bit difficult to get further information from the patient. We will try to get more information from family members, sister is Caleb Dominguez, ____ number [phone]. We will also try to get more information from nursing staff, chart review #[phone] as well as from Dr. Villalobos, who follow the patient. PHYSICAL EXAMINATION: VITAL SIGNS: Blood pressure 124/60, respirations 20, pulse 88, temperature 99. GENERAL: Elderly male, obese, who appear chronically ill. NECK: Supple. No mass. LUNGS: Decreased breath sounds, few rhonchi. HEART: Regular rate and rhythm with systolic ejection murmur. ABDOMEN: Soft, globular. EXTREMITIES: Positive edema of lower extremities, much worse in the right lower extremity. Please see picture with edema, excoriation and ecchymosis. NEUROLOGIC: Limited, right-sided weakness. LABORATORY DATA: WBC 8.8, hemoglobin 12, platelets 307. INR is 1.09. Sodium 133, potassium 4.5, BUN 25, creatinine 1.2. Blood sugar 110, albumin 3.9. Depakote 25. ASSESSMENT AND PLAN: Right lower extremity cellulitis, peripheral vascular disease with dermal stasis changes, obesity, paroxysmal atrial fibrillation and stroke with right-sided weakness, coronary artery disease, status post stent, hypertension, hypercholesterolemia, and schizoaffective disorder. Continue the patient on IV antibiotic. Continue on Levaquin and Flagyl. We will follow the patient's blood cultures. We will perform arterial ultrasound as well as 2D echo. We will review the patient's medication has been reconciled. Continue with current care with followup consult and recommendations. [facility]# [id number]
[2018-03-22] MEDS: metroNIDAZOLE 500mg/NS 100mL 500 MG/100 ML BAG IV SCH ×3 (05:09→20:18)
[2018-03-22 05:56] LABS: % BASOPHILS 0.3 % (0.0-2.0); % EOSINOPHILS 4.8 % (0.0-5.0); % LYMPHOCYTES 16.4 % (20.0-50.0); % MONOCYTES 11.6 % (2.0-10.0); % NEUTROPHILS 66.9 % (40.0-80.0); EOSINOPHILE ABSOLUTE 0.3 Th/cmm (0.1-0.4); HEMATOCRIT 32.7 % (41.0-60); HEMOGLOBIN 10.7 gm/dL (12-16); LYMPHOCYTE ABSOLUTE 1.1 Th/cmm (1.5-3.0); MEAN CELL VOLUME 76.9 fl (80-99); MEAN CORPUSCULAR HEMOGLOBIN 25.1 pg (27.0-31.0); MEAN CORPUSCULAR HGB CONC 32.6 pg (28.0-36.0); MEAN PLATELET VOLUME 7.7 fl; MONOCYTE ABSOLUTE 0.8 Th/cmm (0.3-1.0); NEUTROPHILE ABSOLUTE 4.4 Th/cmm (1.8-8.0); PLATELET COUNT 234 Th/cmm (150-400); RED BLOOD COUNT 4.25 Mil/cmm (3.80-5.80); RED CELL DISTRIBUTION WIDTH 16.3 % (11.5-20.0); WHITE BLOOD COUNT 6.6 Th/cmm (4.8-10.8)
[2018-03-22 06:13] LABS: ANION GAP 10.7 (7.0-16.0); BUN - UREA NITROGEN 20 mg/dL (7-25); CALCIUM SERUM 8.8 mg/dL (8.6-10.3); CARBON DIOXIDE 25.1 mEq/L (21.0-31.0); CHLORIDE 101 mEq/L (98-107); CREATININE - SERUM 1.3 mg/dL (0.7-1.3); GLUCOSE 104 mg/dL (70-105); POTASSIUM SERUM 3.8 mEq/L (3.5-5.1); SODIUM SERUM 133 mEq/L (136-145)
[2018-03-22 07:13] LABS: BNP 26.7 pg/mL (5.0-100.0)
[2018-03-22] MEDS: Potassium Chloride 10 mEq ER Tab PO SCH ×2 (09:11→16:58)
[2018-03-22] MEDS: Fish Oil 1,000 MG SGL PO SCH ×2 (09:11→16:58)
--- NOTE | 2018-03-22 13:57 | Consultation ---
DATE OF CONSULTATION: 03/22/2018 PATIENT'S AGE: 72. SEX: Male. PHYSICIAN: Nir Tompkins D.O. COST ESTIMATING ENGINEER: Navya Dodge M.D., M.P.H. TYPE OF THE REPORT: Psychiatric consult. REASON FOR THE CONSULT: Agitation and confusion. HISTORY OF PRESENT ILLNESS: The patient is a 72-year-old male who is under my care in [facility]. The patient was admitted to the hospital because of confusion and because of bilateral leg pain. The patient has been also restless and has been agitated. The patient is taking Risperdal and Depakote. Chart reviewed and the patient interviewed and discussed the patient's condition with the staff and reviewed records and labs. The patient is confused. He thinks that his "___." Also, ___ with his sister. The patient also was getting more confused, though when I was asking for question and is thought to be more agitated. Also seems to be suspicious and paranoid and preoccupied and his thoughts became disorganized. PAST PSYCHIATRIC HISTORY: The patient has history of what seems to be dementia with psychosis versus schizoaffective disorder. The patient is on Risperdal, Depakote and ___. SOCIAL HISTORY: The patient lives in [facility]. No known alcohol or drug use. ALLERGIES: No known allergies. MENTAL STATUS EXAM: The patient appears older than his stated age. Anxious. Irritable mood. Confused. Denies thoughts. Seems to be preoccupied. Denied hallucinations or delusions and denies suicide or homicide. The patient is alert, but disoriented to time, place, person, and situation. Impaired immediate and recent memories, but intact remote memory. Poor insight and poor judgment. ASSESSMENT: PRIMARY DIAGNOSIS: Unspecified psychosis, rule out schizoaffective disorder, mixed type with psychotic features, rule out dementia with psychosis. TREATMENT PLAN: Monitor patient's behavior and condition closely. We will continue Risperdal and Depakote and we will adjust the dose. Thanks to Dr. Tompkins and will follow up with you. [facility]# [id number]
--- NOTE | 2018-03-22 14:38 | Internal Medicine Prog Note ---
Internal Medicine Subjective - Subjective Patient seen and examined:: with staff, chart reviewed Patient is:: awake, verbal, interactive, in bed, talking, agitated Patient Complaints of:: congestion, bloated, unable to sleep Per staff patient has:: no episodes of fall, eating well, unstable gait Internal Medicine Objective - Results Result Diagrams: 03/22/18 05:27 03/22/18 05:27 Recent Labs: Laboratory Last Values WBC 6.6 Th/cmm (4.8-10.8) 03/22/18 05:27 RBC 4.25 Mil/cmm (3.80-5.80) 03/22/18 05:27 Hgb 10.7 gm/dL (12-16) L 03/22/18 05:27 Hct 32.7 % (41.0-60) L 03/22/18 05:27 MCV 76.9 fl (80-99) L 03/22/18 05:27 MCH 25.1 pg (27.0-31.0) L 03/22/18 05:27 MCHC Differential 32.6 pg (28.0-36.0) 03/22/18 05:27 RDW 16.3 % (11.5-20.0) 03/22/18 05:27 Plt Count 234 Th/cmm (150-400) 03/22/18 05:27 MPV 7.7 fl 03/22/18 05:27 Neutrophils % 66.9 % (40.0-80.0) 03/22/18 05:27 Lymphocytes % 16.4 % (20.0-50.0) L 03/22/18 05:27 Monocytes % 11.6 % (2.0-10.0) H 03/22/18 05:27 Eosinophils % 4.8 % (0.0-5.0) 03/22/18 05:27 Basophils % 0.3 % (0.0-2.0) 03/22/18 05:27 PT 9.8 SECONDS (9.5-11.5) 03/20/18 16:48 INR 0.94 (0.5-1.4) 03/20/18 16:48 PTT (Actin FS) 25.4 SECONDS (26.0-38.0) L 03/20/18 16:48 Sodium 133 mEq/L (136-145) L 03/22/18 05:27 Potassium 3.8 mEq/L (3.5-5.1) 03/22/18 05:27 Chloride 101 mEq/L (98-107) 03/22/18 05:27 Carbon Dioxide 25.1 mEq/L (21.0-31.0) 03/22/18 05:27 Anion Gap 10.7 (7.0-16.0) 03/22/18 05:27 BUN 20 mg/dL (7-25) 03/22/18 05:27 Creatinine 1.3 mg/dL (0.7-1.3) 03/22/18 05:27 Est GFR ( Amer) TNP 03/22/18 05:27 Est GFR (Non-Af Amer) TNP 03/22/18 05:27 BUN/Creatinine Ratio 15.4 03/22/18 05:27 Glucose 104 mg/dL (70-105) 03/22/18 05:27 Whole Bld Lactic Acid 1.60 mmol/L (0.60-1.99) 03/20/18 16:48 Calcium 8.8 mg/dL (8.6-10.3) 03/22/18 05:27 Total Bilirubin 0.4 mg/dL (0.3-1.0) 03/20/18 16:48 AST 25 U/L (13-39) 03/20/18 16:48 ALT 20 U/L (7-52) 03/20/18 16:48 Alkaline Phosphatase 70 U/L (34-104) 03/20/18 16:48 Ammonia 53 umol/L (16-53) 03/22/18 05:27 Creatine Kinase 510 U/L (30-223) H 03/20/18 16:48 CK-MB (CK-2) 4.6 ng/mL (0.6-6.3) 03/20/18 16:48 Troponin I 0.05 ng/mL (0.01-0.05) 03/20/18 16:48 B-Natriuretic Peptide 26.7 pg/mL (5.0-100.0) 03/22/18 05:27 Total Protein 7.3 gm/dL (6.0-8.3) 03/20/18 16:48 Albumin 3.9 gm/dL (4.2-5.5) L 03/20/18 16:48 Globulin 3.4 gm/dL 03/20/18 16:48 Albumin/Globulin Ratio 1.2 (1.0-1.8) 03/20/18 16:48 Urine Source MIDSTREAM 03/20/18 17:00 Urine Color YELLOW 03/20/18 17:00 Urine Clarity CLEAR (CLEAR) 03/20/18 17:00 Urine pH 6.0 (4.6 - 8.0) 03/20/18 17:00 Ur Specific [place] 1.015 (1.005-1.030) 03/20/18 17:00 Urine Protein NEGATIVE mg/dL (NEGATIVE) 03/20/18 17:00 Urine Glucose (UA) NEGATIVE mg/dL (NEGATIVE) 03/20/18 17:00 Urine Ketones NEGATIVE mg/dL (NEGATIVE) 03/20/18 17:00 Urine Blood NEGATIVE (NEGATIVE) 03/20/18 17:00 Urine Nitrate NEGATIVE (NEGATIVE) 03/20/18 17:00 Urine Bilirubin NEGATIVE (NEGATIVE) 03/20/18 17:00 Urine Urobilinogen 0.2 E.U./dL (0.2 - 1.0) 03/20/18 17:00 Ur Leukocyte Esterase TRACE (NEGATIVE) H 03/20/18 17:00 Urine RBC 0-2 /hpf (0-5) H 03/20/18 17:00 Urine WBC 2-5 /hpf (0-5) 03/20/18 17:00 Ur Epithelial Cells OCCASIONAL /lpf (FEW) 03/20/18 17:00 Urine Bacteria NONE SEEN /hpf (NONE SEEN) 03/20/18 17:00 Valproic Acid 24.5 ug/mL (50.0-100.0) L 03/20/18 16:48 - Physical Exam Vitals and I&O: Vital Signs Temp 98 F 03/22/18 08:00 Pulse 77 03/22/18 09:13 Resp 18 03/22/18 08:19 BP 121/59 03/22/18 09:13 Pulse Ox 98 03/22/18 08:00 Intake & Output 03/21/18 03/22/18 03/22/18 18:59 06:59 18:59 Intake Total 550 500 Balance 550 500 Weight (lbs) 132.449 kg 128.82 kg Intake: Intake, IV Amount 100 300 Levofloxacin 500mg/100mL 100 500 mg In 100 ml @ 100 mls/hr IV Q24HR [facility] Rx#: [id number] metroNIDAZOLE 500mg/NS 100 200 100mL 500 mg In 100 ml @ 100 mls/hr IV Q8HR [facility] Rx #:[id number] Oral 450 200 Other: # Voids 2 2 # Bowel Movements 0 Weight Source Bedscale Bedscale Active Medications: Current Medications Acetaminophen (Tylenol) 650 mg PO Q4H PRN PRN Reason: Pain Or Fever above 101 Stop: 05/19/18 22:23 Last Admin: 03/21/18 03:58 Dose: 650 mg Acetaminophen/Hydrocodone Bitart ([place] 10 Mg/325 Mg) 1 tab PO Q6H PRN PRN Reason: MOD/SEVERE PAIN (4-10) Stop: 05/19/18 22:20 Last Admin: 03/21/18 02:17 Dose: 1 tab Al Hydrox/Mg Hydrox/Simethicone (Maalox) 30 ml PO Q6H PRN PRN Reason: Dyspepsia Stop: 05/19/18 22:23 Albuterol Sulfate (Albuterol 2.5mg/3ml Neb Ud) 2.5 mg HHN Q2HRT PRN PRN Reason: Shortness of Breath or Wheeze Stop: 05/19/18 22:23 Aspirin (Ecotrin) 81 mg PO DAILY [facility] Stop: 05/20/18 08:59 Last Admin: 03/22/18 09:10 Dose: 81 mg Bacitracin (Baciquent) 1 appl TP DAILY [facility] Stop: 05/20/18 08:59 Last Admin: 03/22/18 09:10 Dose: 1 appl Carvedilol (Coreg) 3.125 mg PO BID [facility] Stop: 05/20/18 08:59 Last Admin: 03/22/18 09:13 Dose: Not Given Clopidogrel Bisulfate (Plavix) 75 mg PO DAILY [facility] Stop: 05/20/18 08:59 Last Admin: 03/22/18 09:11 Dose: 75 mg Diltiazem HCl (Cardizem) 10 mg IVP Q4H PRN PRN Reason: HR Greater than 130 per min Stop: 05/19/18 22:23 Divalproex Sodium (Depakote Dr) 250 mg PO DAILY [facility]; Protocol Stop: 05/20/18 08:59 Last Admin: 03/22/18 09:11 Dose: 250 mg Divalproex Sodium (Depakote Dr) 250 mg PO HS [facility]; Protocol Stop: 05/20/18 20:59 Last Admin: 03/21/18 22:18 Dose: 250 mg Docusate Sodium (Colace) 100 mg PO DAILY [facility] Stop: 05/20/18 08:59 Last Admin: 03/22/18 09:11 Dose: 100 mg Fish Oil ([place] 3) 1,000 mg PO BID [facility] Stop: 05/20/18 08:59 Last Admin: 03/22/18 09:11 Dose: 1,000 mg Furosemide (Lasix) 40 mg IVP BID [facility] Stop: 05/21/18 16:59 Guaifenesin (Robitussin) 200 mg PO Q4HR PRN PRN Reason: Cough or Congestion Stop: 05/19/18 22:23 Levofloxacin (Levaquin Pb) 500 mg in 100 mls @ 100 mls/hr IV Q24HR [facility] Stop: 05/20/18 00:00 Last Infusion: 03/22/18 04:04 Dose: Infused Metronidazole (Flagyl) 500 mg in 100 mls @ 100 mls/hr IV Q8HR [facility] Stop: 05/20/18 04:59 Last Admin: 03/22/18 13:25 Dose: 100 mls/hr Ipratropium [place] (Atrovent Neb 0.5mg/2.5ml) 0.5 mg HHN Q2HRT PRN PRN Reason: Shortness of Breath or Wheeze Stop: 05/19/18 22:23 Lisinopril (Zestril) 5 mg PO DAILY [facility] Stop: 05/20/18 08:59 Last Admin: 03/22/18 09:13 Dose: Not Given Miscellaneous (Valbenazine Tosylate [Ingrezza]) 40 mg PO DAILY [facility] Stop: 05/20/18 08:59 Nitroglycerin (Nitrostat) 0.4 mg SL Q5MIN PRN PRN Reason: Chest Pain Stop: 05/19/18 22:23 Ondansetron HCl (Zofran) 4 mg IV Q8H PRN PRN Reason: Nausea / Vomiting Stop: 05/19/18 22:23 Potassium Chloride (Klor-Con) 10 meq PO BID [facility] Stop: 05/21/18 16:59 Risperidone (Risperdal) 1 mg PO HS [facility]; Protocol Stop: 05/20/18 20:59 Last Admin: 03/21/18 22:18 Dose: 1 mg Risperidone (Risperdal) 0.5 mg PO DAILY [facility]; Protocol Stop: 05/20/18 08:59 Last Admin: 03/22/18 09:11 Dose: 0.5 mg Senna (Senna) 8.6 mg PO HS [facility] Stop: 05/20/18 20:59 Last Admin: 03/21/18 22:19 Dose: 8.6 mg Simvastatin (Zocor) 20 mg PO HS [facility]; Protocol Stop: 05/20/18 20:59 Last Admin: 03/21/18 22:19 Dose: 20 mg Zolpidem Tartrate (Ambien) 10 mg PO HS PRN PRN Reason: Insomnia Stop: 05/19/18 22:23 General: weak, obese, NAD HEENT: NC/AT, PERRLA, EOMI Neck: Supple, No JVD, No thyromegaly Lungs: congested, rales Cardiovascular: RRR, Normal S1, Normal S2, with murmur Abdomen: soft, globular, positive bowel sound Extremities: edema, deformity, erythema, redness Neurological: no change Internal Medicine Assmt/Plan - Assessment Assessment: ble cellulitis mo pvd dermal stasis changes ble sad cva htn chf - Plan Plan: cont on iv abx will adjust diuretics will correct electrolytes abn monitor h and h o2 bronchodilator tx dw rn monitor wt closely Nutritional Asmnt/Malnutr-PDOC - Dietary Evaluation Malnutrition Findings (Please click <Entered> for more info): Nutritional Asmnt/Malnutrition Start: 03/21/18 12: 08 Text: Status: Complete Freq: Protocol: Document 03/21/18 12:08 GEORGE (Rec: 03/21/18 12:22 GEORGE NOLASCO- FNS1) Nutritional Asmnt/Malnutrition Patient General Information Nutritional Screening High Risk Diagnosis Cellulitis L Leg Pertinent Medical Hx/Surgical Hx RIGHT HEMIPLEGIA, CAD, ATRIAL FIB, CARDIAC STENT, PSYCHOTIC DISORDER, SCHIZOPHRENIA, PUD, DJD, WHEELCHAIR BOUND, RIGHT LOWER EXTREMITY VENOUS STASIS, GAIT/MOBILITY ABNORMALITY, LACK OF COORDINATION, OSTEOARTHRITIS, ASHD, BPH, HYPERLIPIDEMIA, FALL RISK Subjective Information Patient was admitted from [facility]. Per nursing notes, patient with 1+ pitting edema bilat. Current Diet Order/ Nutrition Support Regular Pertinent Medications Maalox, colace, omega 3, lasix , flagyl, zofran, Klor Pertinent Labs (03/20) Na 133 Nutritional Hx/Data Height 1.78 m Height (Calculated Centimeters) 177.8 Current Weight (lbs) 132.449 kg Weight (Calculated Kilograms) 132.4 Weight (Calculated Grams) 428858.0 [place] Body Weight 166 % [place] Body Weight 175 Body Mass Index (BMI) 41.8 Recent Weight Change No Weight Status Morbidly Obese GI Symptoms GI Symptoms None Last BM 03/20 Difficult in: None Food Allergies No Cultural/Ethnic/Voodoo Belief None indicated Skin Integrity/Comment: 1+ pitting edema, Ren 13, itnact Estimated Nutritional Goals BEE in Kcals: Adj wt of IBW Calories/Kcals/Kg 25-30 kcal/kg using Adj BW 89. 7kg Kcals Calculated ~1873-5099 kcal/day Protein: Adj wt of IBW Protein g/k-1.2 gm/kg using Adj BW Protein Calculated 90-105 gm/day Fluid: ml ~2730-7812 ml/day or per MD due to edema Nutritional Problem 1. Problem Problem Altered nutrition related lab values related to Etiology electrolyte imabalance aeb Signs/Symptoms: Na 133 Malnutrition Related to Morbid Obesity Malnutrition related to morbid obesity BMI> or equal to 40 Query Text:(Any 1 Criteria met) Intervention/Recommendation Comments 1. Consider modifying diet to 2gm sodium due to edema/Na133. 2. MD to determine if need for fluid restriction. Expected Outcomes/Goals Expected Outcomes/Goals Oral intake >75% of meals, weight trend toward ideal body weight, edema resolves, nutrition related labs normalize.
--- NOTE | 2018-03-22 16:21 | Cardiology ---
03/21/[address] Tompkins. M-MODE ECHOCARDIOGRAM: Mitral valve, anterior leaflet of mitral valve shows normal excursion, EF velocity. Posterior leaflet of the mitral valve shows normal excursion. Left ventricular posterior wall shows increased thickness, normal excursion. Interventricular septum shows increased thickness, normal excursion, hypertrophy of the left ventricle, ejection fraction 61%. Left atrium normal. Aortic root shows normal dimension, normal excursion of aortic leaflets. CONCLUSION: Hypertrophy of the left ventricle, ejection fraction 61%. 2D ECHO: Long axis view showed normal-sized left ventricle with hypertrophy of the left ventricle. Left atrium normal. Aortic root shows normal dimension, normal excursion of aortic leaflets. Short axis view of mitral valve normal. Short axis view of aortic valve normal. Apical four chamber view showed normal-sized left ventricle with hypertrophy of the left ventricle. Left atrium normal. Right ventricular cavity, right atrium normal. No pericardial effusion. CONCLUSION: Hypertrophy of the left ventricle, ejection fraction 61%. Doppler study shows prominent A wave consistent with full compliance of left ventricle, trace mitral regurgitation, mild tricuspid regurgitation, right ventricular systolic pressure 24 mmHg. JOB# [id number]
[2018-03-22] MEDS: Levofloxacin 500mg/100mL 500 MG/100 ML BAG IV SCH ×2 (23:46)
[2018-03-23] MEDS: Hydrocodone/APAP 10 mg/325 mg Tab PO PRN (02:32)
[2018-03-23] MEDS: metroNIDAZOLE 500mg/NS 100mL 500 MG/100 ML BAG IV SCH ×3 (04:40→20:40)
--- NOTE | 2018-03-23 08:15 | Diagnostic Imaging Report ---
Bilateral lower extremity Doppler arterial ultrasound exam HISTORY: Pain Sonographic sector images were obtained through the arterial systems of both legs. Associated Doppler data was obtained. The exam particularly of the lower legs is limited due to overlying bandages. The exam of the right leg demonstrates abnormal monophasic waveforms within the common femoral, superficial femoral, popliteal, anterior tibial, posterior tibial, and dorsalis pedis arteries. Ankle brachial index could not be calculated due to overlying bandages. Evidence of mild to moderate diffuse atherosclerotic changes demonstrated sonographically. The left leg also demonstrates abnormal monophasic waveforms throughout the arterial system. Mild to moderate diffuse atherosclerotic changes seen. No focal occlusion or severe stenosis. IMPRESSION: 1. Limited exam technically of the lower legs due to overlying bandages 2. Evidence of mild to moderate diffuse atherosclerotic changes. No focal occlusion identified
[2018-03-23] MEDS: Fish Oil 1,000 MG SGL PO SCH ×2 (09:24→16:58)
[2018-03-23] MEDS: Potassium Chloride 10 mEq ER Tab PO SCH ×2 (09:26→16:58)
--- NOTE | 2018-03-23 14:08 | Internal Medicine Prog Note ---
Internal Medicine Subjective - Subjective Service Date: 03/23/18 Patient is:: awake, verbal, interactive, in bed, talking Patient Complaints of:: congestion, bloated, unable to sleep Per staff patient has:: no episodes of fall, eating well, unstable gait Internal Medicine Objective - Results Result Diagrams: 03/22/18 05:27 03/22/18 05:27 Recent Labs: Laboratory Last Values WBC 6.6 Th/cmm (4.8-10.8) 03/22/18 05:27 RBC 4.25 Mil/cmm (3.80-5.80) 03/22/18 05:27 Hgb 10.7 gm/dL (12-16) L 03/22/18 05:27 Hct 32.7 % (41.0-60) L 03/22/18 05:27 MCV 76.9 fl (80-99) L 03/22/18 05:27 MCH 25.1 pg (27.0-31.0) L 03/22/18 05:27 MCHC Differential 32.6 pg (28.0-36.0) 03/22/18 05:27 RDW 16.3 % (11.5-20.0) 03/22/18 05:27 Plt Count 234 Th/cmm (150-400) 03/22/18 05:27 MPV 7.7 fl 03/22/18 05:27 Neutrophils % 66.9 % (40.0-80.0) 03/22/18 05:27 Lymphocytes % 16.4 % (20.0-50.0) L 03/22/18 05:27 Monocytes % 11.6 % (2.0-10.0) H 03/22/18 05:27 Eosinophils % 4.8 % (0.0-5.0) 03/22/18 05:27 Basophils % 0.3 % (0.0-2.0) 03/22/18 05:27 PT 9.8 SECONDS (9.5-11.5) 03/20/18 16:48 INR 0.94 (0.5-1.4) 03/20/18 16:48 PTT (Actin FS) 25.4 SECONDS (26.0-38.0) L 03/20/18 16:48 Sodium 133 mEq/L (136-145) L 03/22/18 05:27 Potassium 3.8 mEq/L (3.5-5.1) 03/22/18 05:27 Chloride 101 mEq/L (98-107) 03/22/18 05:27 Carbon Dioxide 25.1 mEq/L (21.0-31.0) 03/22/18 05:27 Anion Gap 10.7 (7.0-16.0) 03/22/18 05:27 BUN 20 mg/dL (7-25) 03/22/18 05:27 Creatinine 1.3 mg/dL (0.7-1.3) 03/22/18 05:27 Est GFR ( Amer) TNP 03/22/18 05:27 Est GFR (Non-Af Amer) TNP 03/22/18 05:27 BUN/Creatinine Ratio 15.4 03/22/18 05:27 Glucose 104 mg/dL (70-105) 03/22/18 05:27 Whole Bld Lactic Acid 1.60 mmol/L (0.60-1.99) 03/20/18 16:48 Calcium 8.8 mg/dL (8.6-10.3) 03/22/18 05:27 Total Bilirubin 0.4 mg/dL (0.3-1.0) 03/20/18 16:48 AST 25 U/L (13-39) 03/20/18 16:48 ALT 20 U/L (7-52) 03/20/18 16:48 Alkaline Phosphatase 70 U/L (34-104) 03/20/18 16:48 Ammonia 53 umol/L (16-53) 03/22/18 05:27 Creatine Kinase 510 U/L (30-223) H 03/20/18 16:48 CK-MB (CK-2) 4.6 ng/mL (0.6-6.3) 03/20/18 16:48 Troponin I 0.05 ng/mL (0.01-0.05) 03/20/18 16:48 B-Natriuretic Peptide 26.7 pg/mL (5.0-100.0) 03/22/18 05:27 Total Protein 7.3 gm/dL (6.0-8.3) 03/20/18 16:48 Albumin 3.9 gm/dL (4.2-5.5) L 03/20/18 16:48 Globulin 3.4 gm/dL 03/20/18 16:48 Albumin/Globulin Ratio 1.2 (1.0-1.8) 03/20/18 16:48 Urine Source MIDSTREAM 03/20/18 17:00 Urine Color YELLOW 03/20/18 17:00 Urine Clarity CLEAR (CLEAR) 03/20/18 17:00 Urine pH 6.0 (4.6 - 8.0) 03/20/18 17:00 Ur Specific [place] 1.015 (1.005-1.030) 03/20/18 17:00 Urine Protein NEGATIVE mg/dL (NEGATIVE) 03/20/18 17:00 Urine Glucose (UA) NEGATIVE mg/dL (NEGATIVE) 03/20/18 17:00 Urine Ketones NEGATIVE mg/dL (NEGATIVE) 03/20/18 17:00 Urine Blood NEGATIVE (NEGATIVE) 03/20/18 17:00 Urine Nitrate NEGATIVE (NEGATIVE) 03/20/18 17:00 Urine Bilirubin NEGATIVE (NEGATIVE) 03/20/18 17:00 Urine Urobilinogen 0.2 E.U./dL (0.2 - 1.0) 03/20/18 17:00 Ur Leukocyte Esterase TRACE (NEGATIVE) H 03/20/18 17:00 Urine RBC 0-2 /hpf (0-5) H 03/20/18 17:00 Urine WBC 2-5 /hpf (0-5) 03/20/18 17:00 Ur Epithelial Cells OCCASIONAL /lpf (FEW) 03/20/18 17:00 Urine Bacteria NONE SEEN /hpf (NONE SEEN) 03/20/18 17:00 Valproic Acid 24.5 ug/mL (50.0-100.0) L 03/20/18 16:48 - Physical Exam Vitals and I&O: Vital Signs Temp 100.1 F 03/23/18 11:43 Pulse 78 03/23/18 11:46 Resp 18 03/23/18 12:00 BP 106/67 03/23/18 11:46 Pulse Ox 95 03/23/18 11:43 Intake & Output 03/22/18 03/23/18 03/23/18 18:59 06:59 18:59 Intake Total 750 1000 Balance 750 1000 Weight (lbs) 284 lb 279 lb 8 oz Intake: Intake, IV Amount 300 metroNIDAZOLE 500mg/NS 300 100mL 500 mg In 100 ml @ 100 mls/hr IV Q8HR [facility] Rx #:[id number] Oral 750 400 Other 300 Other: # Voids 2 3 # Bowel Movements 1 Weight Source Bedscale Bedscale Active Medications: Current Medications Acetaminophen (Tylenol) 650 mg PO Q4H PRN PRN Reason: Pain Or Fever above 101 Stop: 05/19/18 22:23 Last Admin: 03/23/18 12:32 Dose: 650 mg Acetaminophen/Hydrocodone Bitart ([place] 10 Mg/325 Mg) 1 tab PO Q6H PRN PRN Reason: MOD/SEVERE PAIN (4-10) Stop: 05/19/18 22:20 Last Admin: 03/23/18 02:32 Dose: 1 tab Al Hydrox/Mg Hydrox/Simethicone (Maalox) 30 ml PO Q6H PRN PRN Reason: Dyspepsia Stop: 05/19/18 22:23 Albuterol Sulfate (Albuterol 2.5mg/3ml Neb Ud) 2.5 mg HHN Q2HRT PRN PRN Reason: Shortness of Breath or Wheeze Stop: 05/19/18 22:23 Aspirin (Ecotrin) 81 mg PO DAILY [facility] Stop: 05/20/18 08:59 Last Admin: 03/23/18 09:26 Dose: 81 mg Bacitracin (Baciquent) 1 appl TP DAILY [facility] Stop: 05/20/18 08:59 Last Admin: 03/22/18 09:10 Dose: 1 appl Carvedilol (Coreg) 3.125 mg PO BID [facility] Stop: 05/20/18 08:59 Last Admin: 03/23/18 09:24 Dose: 3.125 mg Clopidogrel Bisulfate (Plavix) 75 mg PO DAILY [facility] Stop: 05/20/18 08:59 Last Admin: 03/23/18 09:24 Dose: 75 mg Diltiazem HCl (Cardizem) 10 mg IVP Q4H PRN PRN Reason: HR Greater than 130 per min Stop: 05/19/18 22:23 Divalproex Sodium (Depakote Dr) 250 mg PO DAILY [facility]; Protocol Stop: 05/20/18 08:59 Last Admin: 03/23/18 09:26 Dose: 250 mg Divalproex Sodium (Depakote Dr) 250 mg PO HS [facility]; Protocol Stop: 05/20/18 20:59 Last Admin: 03/22/18 20:17 Dose: 250 mg Docusate Sodium (Colace) 100 mg PO DAILY [facility] Stop: 05/20/18 08:59 Last Admin: 03/23/18 09:26 Dose: 100 mg Fish Oil ([place] 3) 1,000 mg PO BID [facility] Stop: 05/20/18 08:59 Last Admin: 03/23/18 09:24 Dose: 1,000 mg Furosemide (Lasix) 40 mg IVP BID [facility] Stop: 05/21/18 16:59 Last Admin: 03/23/18 09:29 Dose: 40 mg Guaifenesin (Robitussin) 200 mg PO Q4HR PRN PRN Reason: Cough or Congestion Stop: 05/19/18 22:23 Levofloxacin (Levaquin Pb) 500 mg in 100 mls @ 100 mls/hr IV Q24HR [facility] Stop: 05/20/18 00:00 Last Admin: 03/22/18 23:46 Dose: 100 mls/hr Metronidazole (Flagyl) 500 mg in 100 mls @ 100 mls/hr IV Q8HR [facility] Stop: 05/20/18 04:59 Last Admin: 03/23/18 12:44 Dose: 100 mls/hr Ipratropium [place] (Atrovent Neb 0.5mg/2.5ml) 0.5 mg HHN Q2HRT PRN PRN Reason: Shortness of Breath or Wheeze Stop: 05/19/18 22:23 Lisinopril (Zestril) 5 mg PO DAILY [facility] Stop: 05/20/18 08:59 Last Admin: 03/23/18 11:46 Dose: Not Given Miscellaneous (Valbenazine Tosylate [Ingrezza]) 40 mg PO DAILY [facility] Stop: 05/20/18 08:59 Nitroglycerin (Nitrostat) 0.4 mg SL Q5MIN PRN PRN Reason: Chest Pain Stop: 05/19/18 22:23 Ondansetron HCl (Zofran) 4 mg IV Q8H PRN PRN Reason: Nausea / Vomiting Stop: 05/19/18 22:23 Potassium Chloride (Klor-Con) 10 meq PO BID [facility] Stop: 05/21/18 16:59 Last Admin: 03/23/18 09:26 Dose: 10 meq Risperidone (Risperdal) 1 mg PO HS [facility]; Protocol Stop: 05/20/18 20:59 Last Admin: 03/22/18 20:19 Dose: 1 mg Risperidone (Risperdal) 0.5 mg PO DAILY [facility]; Protocol Stop: 05/20/18 08:59 Last Admin: 03/23/18 09:27 Dose: 0.5 mg Senna (Senna) 8.6 mg PO HS [facility] Stop: 05/20/18 20:59 Last Admin: 03/22/18 20:19 Dose: 8.6 mg Simvastatin (Zocor) 20 mg PO HS [facility]; Protocol Stop: 05/20/18 20:59 Last Admin: 03/22/18 20:20 Dose: 20 mg Zolpidem Tartrate (Ambien) 10 mg PO HS PRN PRN Reason: Insomnia Stop: 05/19/18 22:23 General: weak, obese, NAD HEENT: NC/AT, PERRLA, EOMI Neck: Supple, No JVD, No thyromegaly Lungs: congested, rales Cardiovascular: RRR, Normal S1, Normal S2, with murmur Abdomen: soft, globular, positive bowel sound Extremities: edema, deformity, erythema, redness Neurological: no change Internal Medicine Assmt/Plan - Assessment Assessment: ble cellulitis mo pvd dermal stasis changes ble sad cva htn chf - Plan Plan: cont on iv abx monitor h and h o2 bronchodilator tx dw rn monitor wt closely Nutritional Asmnt/Malnutr-PDOC - Dietary Evaluation Malnutrition Findings (Please click <Entered> for more info): Nutritional Asmnt/Malnutrition Start: 03/21/18 12: 08 Text: Status: Complete Freq: Protocol: Document 03/21/18 12:08 MMEULALIA (Rec: 03/21/18 12:22 MMEULALIA NOLASCO- FNS1) Nutritional Asmnt/Malnutrition Patient General Information Nutritional Screening High Risk Diagnosis Cellulitis L Leg Pertinent Medical Hx/Surgical Hx RIGHT HEMIPLEGIA, CAD, ATRIAL FIB, CARDIAC STENT, PSYCHOTIC DISORDER, SCHIZOPHRENIA, PUD, DJD, WHEELCHAIR BOUND, RIGHT LOWER EXTREMITY VENOUS STASIS, GAIT/MOBILITY ABNORMALITY, LACK OF COORDINATION, OSTEOARTHRITIS, ASHD, BPH, HYPERLIPIDEMIA, FALL RISK Subjective Information Patient was admitted from [place] [facility]. Per nursing notes, patient with 1+ pitting edema bilat. Current Diet Order/ Nutrition Support Regular Pertinent Medications Maalox, colace, omega 3, lasix , flagyl, zofran, Klor Pertinent Labs (03/20) Na 133 Nutritional Hx/Data Height 5 ft 10 in Height (Calculated Centimeters) 177.8 Current Weight (lbs) 292 lb Weight (Calculated Kilograms) 132.4 Weight (Calculated Grams) 592950.0 [place] Body Weight 166 % [place] Body Weight 175 Body Mass Index (BMI) 41.8 Recent Weight Change No Weight Status Morbidly Obese GI Symptoms GI Symptoms None Last BM 03/20 Difficult in: None Food Allergies No Cultural/Ethnic/Zoroastrianism Belief None indicated Skin Integrity/Comment: 1+ pitting edema, Ren 13, itnact Estimated Nutritional Goals BEE in Kcals: Adj wt of IBW Calories/Kcals/Kg 25-30 kcal/kg using Adj BW 89. 7kg Kcals Calculated ~1870-1128 kcal/day Protein: Adj wt of IBW Protein g/k-1.2 gm/kg using Adj BW Protein Calculated 90-105 gm/day Fluid: ml ~5566-2461 ml/day or per MD due to edema Nutritional Problem 1. Problem Problem Altered nutrition related lab values related to Etiology electrolyte imabalance aeb Signs/Symptoms: Na 133 Malnutrition Related to Morbid Obesity Malnutrition related to morbid obesity BMI> or equal to 40 Query Text:(Any 1 Criteria met) Intervention/Recommendation Comments 1. Consider modifying diet to 2gm sodium due to edema/Na133. 2. MD to determine if need for fluid restriction. Expected Outcomes/Goals Expected Outcomes/Goals Oral intake >75% of meals, weight trend toward ideal body weight, edema resolves, nutrition related labs normalize.
[2018-03-23 20:44] LABS: A1C % 5.6 % (4.0-6.0)
--- NOTE | 2018-03-23 23:11 | Progress Notes ---
DATE: 03/23/[address] Dodge. Case was discussed with staff of the patient, reviewed records. This is a 72-year-old male who was seen by Dr. Dodge initially yesterday because of agitation and confusion. The patient is a well-known case ____ from [place]. The patient was admitted because of confusion and neck pain, has been restless, agitated. He is on Risperdal and Depakote. The patient also is demented. The patient continues to be confused, continues to be internally preoccupied. He denies any current auditory or visual hallucination or paranoia. His current medication includes Depakote 250 mg daily at bedtime and Risperdal 1 mg at bedtime and 0.5 mg daily. No side effects, no sedation, no nausea, no extrapyramidal symptoms. Thank you very much for allowing me to participate in the care of this most interesting gentleman. [facility]# [id number]
[2018-03-24] MEDS: Levofloxacin 500mg/100mL 500 MG/100 ML BAG IV SCH (01:13)
[2018-03-24 05:26] LABS: % BASOPHILS 0.6 % (0.0-2.0); % EOSINOPHILS 5.3 % (0.0-5.0); % LYMPHOCYTES 15.7 % (20.0-50.0); % MONOCYTES 10.1 % (2.0-10.0); % NEUTROPHILS 68.3 % (40.0-80.0); EOSINOPHILE ABSOLUTE 0.3 Th/cmm (0.1-0.4); HEMATOCRIT 33.3 % (41.0-60); HEMOGLOBIN 11.1 gm/dL (12-16); MEAN CELL VOLUME 76.8 fl (80-99); MEAN CORPUSCULAR HEMOGLOBIN 25.6 pg (27.0-31.0); MEAN CORPUSCULAR HGB CONC 33.3 pg (28.0-36.0); MEAN PLATELET VOLUME 7.8 fl; MONOCYTE ABSOLUTE 0.6 Th/cmm (0.3-1.0); NEUTROPHILE ABSOLUTE 4.2 Th/cmm (1.8-8.0); PLATELET COUNT 259 Th/cmm (150-400); RED BLOOD COUNT 4.33 Mil/cmm (3.80-5.80); RED CELL DISTRIBUTION WIDTH 15.8 % (11.5-20.0); WHITE BLOOD COUNT 6.1 Th/cmm (4.8-10.8)
[2018-03-24] MEDS: metroNIDAZOLE 500mg/NS 100mL 500 MG/100 ML BAG IV SCH ×2 (05:49→12:02)
[2018-03-24 05:57] LABS: ANION GAP 12.1 (7.0-16.0); BUN - UREA NITROGEN 23 mg/dL (7-25); CARBON DIOXIDE 26.4 mEq/L (21.0-31.0); CHLORIDE 101 mEq/L (98-107); CREATININE - SERUM 1.4 mg/dL (0.7-1.3); GLUCOSE 133 mg/dL (70-105); POTASSIUM SERUM 3.5 mEq/L (3.5-5.1); SODIUM SERUM 136 mEq/L (136-145)
[2018-03-24] MEDS: Fish Oil 1,000 MG SGL PO SCH ×2 (08:38→16:11)
[2018-03-24] MEDS: Potassium Chloride 10 mEq ER Tab PO SCH ×2 (08:38→16:11)
[2018-03-24 08:44] LABS: FOLIC ACID 15.6 ng/mL (>3.0)
--- NOTE | 2018-03-24 18:59 | Internal Medicine Prog Note ---
Internal Medicine Subjective - Subjective Service Date: 03/24/18 Patient is:: awake, verbal, interactive, in bed, talking Patient Complaints of:: congestion, bloated, unable to sleep Per staff patient has:: no episodes of fall, eating well, unstable gait Internal Medicine Objective - Results Result Diagrams: 03/24/18 05:05 03/24/18 05:05 Recent Labs: Laboratory Last Values WBC 6.1 Th/cmm (4.8-10.8) 03/24/18 05:05 RBC 4.33 Mil/cmm (3.80-5.80) 03/24/18 05:05 Hgb 11.1 gm/dL (12-16) L 03/24/18 05:05 Hct 33.3 % (41.0-60) L 03/24/18 05:05 MCV 76.8 fl (80-99) L 03/24/18 05:05 MCH 25.6 pg (27.0-31.0) L 03/24/18 05:05 MCHC Differential 33.3 pg (28.0-36.0) 03/24/18 05:05 RDW 15.8 % (11.5-20.0) 03/24/18 05:05 Plt Count 259 Th/cmm (150-400) 03/24/18 05:05 MPV 7.8 fl 03/24/18 05:05 Neutrophils % 68.3 % (40.0-80.0) 03/24/18 05:05 Lymphocytes % 15.7 % (20.0-50.0) L 03/24/18 05:05 Monocytes % 10.1 % (2.0-10.0) H 03/24/18 05:05 Eosinophils % 5.3 % (0.0-5.0) H 03/24/18 05:05 Basophils % 0.6 % (0.0-2.0) 03/24/18 05:05 PT 9.8 SECONDS (9.5-11.5) 03/20/18 16:48 INR 0.94 (0.5-1.4) 03/20/18 16:48 PTT (Actin FS) 25.4 SECONDS (26.0-38.0) L 03/20/18 16:48 Sodium 136 mEq/L (136-145) 03/24/18 05:05 Potassium 3.5 mEq/L (3.5-5.1) 03/24/18 05:05 Chloride 101 mEq/L (98-107) 03/24/18 05:05 Carbon Dioxide 26.4 mEq/L (21.0-31.0) 03/24/18 05:05 Anion Gap 12.1 (7.0-16.0) 03/24/18 05:05 BUN 23 mg/dL (7-25) 03/24/18 05:05 Creatinine 1.4 mg/dL (0.7-1.3) H 03/24/18 05:05 Est GFR ( Amer) TNP 03/24/18 05:05 Est GFR (Non-Af Amer) TNP 03/24/18 05:05 BUN/Creatinine Ratio 16.4 03/24/18 05:05 Glucose 133 mg/dL (70-105) H 03/24/18 05:05 Hemoglobin A1c % 5.6 % (4.0-6.0) 03/22/18 05:27 Whole Bld Lactic Acid 1.60 mmol/L (0.60-1.99) 03/20/18 16:48 Calcium 9.0 mg/dL (8.6-10.3) 03/24/18 05:05 Total Bilirubin 0.4 mg/dL (0.3-1.0) 03/20/18 16:48 AST 25 U/L (13-39) 03/20/18 16:48 ALT 20 U/L (7-52) 03/20/18 16:48 Alkaline Phosphatase 70 U/L (34-104) 03/20/18 16:48 Ammonia 53 umol/L (16-53) 03/22/18 05:27 Creatine Kinase 510 U/L (30-223) H 03/20/18 16:48 CK-MB (CK-2) 4.6 ng/mL (0.6-6.3) 03/20/18 16:48 Troponin I 0.05 ng/mL (0.01-0.05) 03/20/18 16:48 B-Natriuretic Peptide 26.7 pg/mL (5.0-100.0) 03/22/18 05:27 Total Protein 7.3 gm/dL (6.0-8.3) 03/20/18 16:48 Albumin 3.9 gm/dL (4.2-5.5) L 03/20/18 16:48 Globulin 3.4 gm/dL 03/20/18 16:48 Albumin/Globulin Ratio 1.2 (1.0-1.8) 03/20/18 16:48 Vitamin B12 500 pg/mL (232-1245) 03/22/18 05:27 Folic Acid 15.6 ng/mL (>3.0) 03/22/18 05:27 Urine Source MIDSTREAM 03/20/18 17:00 Urine Color YELLOW 03/20/18 17:00 Urine Clarity CLEAR (CLEAR) 03/20/18 17:00 Urine pH 6.0 (4.6 - 8.0) 03/20/18 17:00 Ur Specific [place] 1.015 (1.005-1.030) 03/20/18 17:00 Urine Protein NEGATIVE mg/dL (NEGATIVE) 03/20/18 17:00 Urine Glucose (UA) NEGATIVE mg/dL (NEGATIVE) 03/20/18 17:00 Urine Ketones NEGATIVE mg/dL (NEGATIVE) 03/20/18 17:00 Urine Blood NEGATIVE (NEGATIVE) 03/20/18 17:00 Urine Nitrate NEGATIVE (NEGATIVE) 03/20/18 17:00 Urine Bilirubin NEGATIVE (NEGATIVE) 03/20/18 17:00 Urine Urobilinogen 0.2 E.U./dL (0.2 - 1.0) 03/20/18 17:00 Ur Leukocyte Esterase TRACE (NEGATIVE) H 03/20/18 17:00 Urine RBC 0-2 /hpf (0-5) H 03/20/18 17:00 Urine WBC 2-5 /hpf (0-5) 03/20/18 17:00 Ur Epithelial Cells OCCASIONAL /lpf (FEW) 03/20/18 17:00 Urine Bacteria NONE SEEN /hpf (NONE SEEN) 03/20/18 17:00 Valproic Acid 24.5 ug/mL (50.0-100.0) L 03/20/18 16:48 - Physical Exam Vitals and I&O: Vital Signs Temp 98 F 03/24/18 16:52 Pulse 70 03/24/18 16:52 Resp 18 03/24/18 16:52 BP 100/57 03/24/18 16:52 Pulse Ox 97 03/24/18 16:52 Intake & Output 03/23/18 03/24/18 03/24/18 18:59 06:59 18:59 Intake Total 700 440 300 Balance 700 440 300 Weight (lbs) 280 lb 279 lb 277 lb 1.6 oz Intake: Intake, IV Amount 100 200 metroNIDAZOLE 500mg/NS 100 200 100mL 500 mg In 100 ml @ 100 mls/hr IV Q8HR [facility] Rx #:[id number] Oral 600 240 300 Other: # Voids 2 3 4 # Bowel Movements 0 0 0 Weight Source Bedscale Bedscale Bedscale Active Medications: Current Medications Acetaminophen (Tylenol) 650 mg PO Q4H PRN PRN Reason: Pain Or Fever above 101 Stop: 05/19/18 22:23 Last Admin: 03/23/18 12:32 Dose: 650 mg Acetaminophen/Hydrocodone Bitart ([place] 10 Mg/325 Mg) 1 tab PO Q6H PRN PRN Reason: MOD/SEVERE PAIN (4-10) Stop: 05/19/18 22:20 Last Admin: 03/23/18 02:32 Dose: 1 tab Al Hydrox/Mg Hydrox/Simethicone (Maalox) 30 ml PO Q6H PRN PRN Reason: Dyspepsia Stop: 05/19/18 22:23 Albuterol Sulfate (Albuterol 2.5mg/3ml Neb Ud) 2.5 mg HHN Q2HRT PRN PRN Reason: Shortness of Breath or Wheeze Stop: 05/19/18 22:23 Aspirin (Ecotrin) 81 mg PO DAILY [facility] Stop: 05/20/18 08:59 Last Admin: 03/24/18 08:38 Dose: 81 mg Bacitracin (Baciquent) 1 appl TP DAILY [facility] Stop: 05/20/18 08:59 Last Admin: 03/24/18 09:13 Dose: 1 appl Carvedilol (Coreg) 3.125 mg PO BID [facility] Stop: 05/20/18 08:59 Last Admin: 03/24/18 16:12 Dose: Not Given Clopidogrel Bisulfate (Plavix) 75 mg PO DAILY [facility] Stop: 05/20/18 08:59 Last Admin: 03/24/18 08:40 Dose: 75 mg Diltiazem HCl (Cardizem) 10 mg IVP Q4H PRN PRN Reason: HR Greater than 130 per min Stop: 05/19/18 22:23 Divalproex Sodium (Depakote Dr) 250 mg PO DAILY [facility]; Protocol Stop: 05/20/18 08:59 Last Admin: 03/24/18 08:38 Dose: 250 mg Divalproex Sodium (Depakote Dr) 250 mg PO HS [facility]; Protocol Stop: 05/20/18 20:59 Last Admin: 03/23/18 20:38 Dose: 250 mg Docusate Sodium (Colace) 100 mg PO DAILY [facility] Stop: 05/20/18 08:59 Last Admin: 03/24/18 08:38 Dose: 100 mg Fish Oil ([place] 3) 1,000 mg PO BID [facility] Stop: 05/20/18 08:59 Last Admin: 03/24/18 16:11 Dose: 1,000 mg Furosemide (Lasix) 40 mg IVP BID [facility] Stop: 05/21/18 16:59 Last Admin: 03/24/18 16:12 Dose: Not Given Guaifenesin (Robitussin) 200 mg PO Q4HR PRN PRN Reason: Cough or Congestion Stop: 05/19/18 22:23 Levofloxacin (Levaquin Pb) 500 mg in 100 mls @ 100 mls/hr IV Q24HR [facility] Stop: 05/20/18 00:00 Last Admin: 03/24/18 01:13 Dose: 100 mls/hr Metronidazole (Flagyl) 500 mg in 100 mls @ 100 mls/hr IV Q8HR [facility] Stop: 05/20/18 04:59 Last Admin: 03/24/18 12:02 Dose: 100 mls/hr Ipratropium [place] (Atrovent Neb 0.5mg/2.5ml) 0.5 mg HHN Q2HRT PRN PRN Reason: Shortness of Breath or Wheeze Stop: 05/19/18 22:23 Lisinopril (Zestril) 5 mg PO DAILY [facility] Stop: 05/20/18 08:59 Last Admin: 03/24/18 08:40 Dose: 5 mg Miscellaneous (Valbenazine Tosylate [Ingrezza]) 40 mg PO DAILY [facility] Stop: 05/20/18 08:59 Nitroglycerin (Nitrostat) 0.4 mg SL Q5MIN PRN PRN Reason: Chest Pain Stop: 05/19/18 22:23 Ondansetron HCl (Zofran) 4 mg IV Q8H PRN PRN Reason: Nausea / Vomiting Stop: 05/19/18 22:23 Potassium Chloride (Klor-Con) 10 meq PO BID [facility] Stop: 05/21/18 16:59 Last Admin: 03/24/18 16:11 Dose: 10 meq Risperidone (Risperdal) 1 mg PO HS [facility]; Protocol Stop: 05/20/18 20:59 Last Admin: 03/23/18 20:37 Dose: 1 mg Risperidone (Risperdal) 0.5 mg PO DAILY [facility]; Protocol Stop: 05/20/18 08:59 Last Admin: 03/24/18 08:38 Dose: 0.5 mg Senna (Senna) 8.6 mg PO HS [facility] Stop: 05/20/18 20:59 Last Admin: 03/23/18 20:38 Dose: 8.6 mg Simvastatin (Zocor) 20 mg PO HS [facility]; Protocol Stop: 05/20/18 20:59 Last Admin: 03/23/18 20:38 Dose: 20 mg Zolpidem Tartrate (Ambien) 10 mg PO HS PRN PRN Reason: Insomnia Stop: 05/19/18 22:23 General: weak, obese, NAD HEENT: NC/AT, PERRLA, EOMI Neck: Supple, No JVD, No thyromegaly Lungs: congested, rales Cardiovascular: RRR, Normal S1, Normal S2, with murmur Abdomen: soft, globular, positive bowel sound Extremities: edema, deformity, erythema, redness Neurological: no change Internal Medicine Assmt/Plan - Assessment Assessment: ble cellulitis mo pvd dermal stasis changes ble sad cva htn chf - Plan Plan: cont on iv abx monitor h and h o2 bronchodilator tx dw rn monitor wt closely Nutritional Asmnt/Malnutr-PDOC - Dietary Evaluation Malnutrition Findings (Please click <Entered> for more info): Nutritional Asmnt/Malnutrition Start: 03/21/18 12: 08 Text: Status: Complete Freq: Protocol: Document 03/21/18 12:08 [email or web address] (Rec: 03/21/18 12:22 MMEULALIA NOLASCO- [email or web address]) Nutritional Asmnt/Malnutrition Patient General Information Nutritional Screening High Risk Diagnosis Cellulitis L Leg Pertinent Medical Hx/Surgical Hx RIGHT HEMIPLEGIA, CAD, ATRIAL FIB, CARDIAC STENT, PSYCHOTIC DISORDER, SCHIZOPHRENIA, PUD, DJD, WHEELCHAIR BOUND, RIGHT LOWER EXTREMITY VENOUS STASIS, GAIT/MOBILITY ABNORMALITY, LACK OF COORDINATION, OSTEOARTHRITIS, ASHD, BPH, HYPERLIPIDEMIA, FALL RISK Subjective Information Patient was admitted from [facility]. Per nursing notes, patient with 1+ pitting edema bilat. Current Diet Order/ Nutrition Support Regular Pertinent Medications Maalox, colace, omega 3, lasix , flagyl, zofran, Klor Pertinent Labs (03/20) Na 133 Nutritional Hx/Data Height 5 ft 10 in Height (Calculated Centimeters) 177.8 Current Weight (lbs) 292 lb Weight (Calculated Kilograms) 132.4 Weight (Calculated Grams) 752920.0 Mobile Body Weight 166 % Mobile Body Weight 175 Body Mass Index (BMI) 41.8 Recent Weight Change No Weight Status Morbidly Obese GI Symptoms GI Symptoms None Last BM 03/20 Difficult in: None Food Allergies No Cultural/Ethnic/Rastafari Belief None indicated Skin Integrity/Comment: 1+ pitting edema, Ren 13, itnact Estimated Nutritional Goals BEE in Kcals: Adj wt of IBW Calories/Kcals/Kg 25-30 kcal/kg using Adj BW 89. 7kg Kcals Calculated ~9264-5196 kcal/day Protein: Adj wt of IBW Protein g/k-1.2 gm/kg using Adj BW Protein Calculated 90-105 gm/day Fluid: ml ~5841-3577 ml/day or per MD due to edema Nutritional Problem 1. Problem Problem Altered nutrition related lab values related to Etiology electrolyte imabalance aeb Signs/Symptoms: Na 133 Malnutrition Related to Morbid Obesity Malnutrition related to morbid obesity BMI> or equal to 40 Query Text:(Any 1 Criteria met) Intervention/Recommendation Comments 1. Consider modifying diet to 2gm sodium due to edema/Na133. 2. MD to determine if need for fluid restriction. Expected Outcomes/Goals Expected Outcomes/Goals Oral intake >75% of meals, weight trend toward ideal body weight, edema resolves, nutrition related labs normalize.
--- NOTE | 2018-03-24 20:48 | Progress Notes ---
DATE: 03/24/2018 SUBJECTIVE: Case was discussed with staff of the patient, reviewed records. The patient continues to have episodes of confusion and irritability; however, in general, he is calmer. He is sleeping well. He is eating better. He continues to have poor insight about the whole situation. He denies any current intent to harm himself or anybody. No auditory or visual hallucination. No side effects with the medication, no sedation, and no nausea. Thank you very much for allowing me to participate in the care of this most interesting gentleman. JOB# [id number]
== END 2018-03-24 20:30 | DRG 603 ==
LOC: ER 16:14 → TELE 21:14 → MSI 03-24 16:09
PROVIDERS: ADMIT Internal Medicine; ATTEND Internal Medicine
DX: L03.115 Cellulitis of right lower limb (principal); I69.951 Hemiplegia and hemiparesis following unspecified cerebrovascular disease affecting right dominant side; E87.1 Hypo-osmolality and hyponatremia; N39.0 Urinary tract infection, site not specified; I73.9 Peripheral vascular disease, unspecified; I48.0 Paroxysmal atrial fibrillation; E78.5 Hyperlipidemia, unspecified; F25.9 Schizoaffective disorder, unspecified; I11.0 Hypertensive heart disease with heart failure; I50.9 Heart failure, unspecified; F03.90 Unspecified dementia, unspecified severity, without behavioral disturbance, psychotic disturbance, mood disturbance, and anxiety; R56.9 Unspecified convulsions; F17.210 Nicotine dependence, cigarettes, uncomplicated; F29 Unspecified psychosis not due to a substance or known physiological condition; I25.10 Atherosclerotic heart disease of native coronary artery without angina pectoris; I87.8 Other specified disorders of veins; E78.00 Pure hypercholesterolemia, unspecified; E66.01 Morbid (severe) obesity due to excess calories; L03.116 Cellulitis of left lower limb; Z95.5 Presence of coronary angioplasty implant and graft; Z68.39 Body mass index [BMI] 39.0-39.9, adult; Z88.0 Allergy status to penicillin; Z88.8 Allergy status to other drugs, medicaments and biological substances; Z99.3 Dependence on wheelchair; Z82.49 Family history of ischemic heart disease and other diseases of the circulatory system
CPT/HCPCS: 36415-UA; 71045-TC; 80048-TC; 80053-TC; 80164-TC; 81001-TC; 82140-TC; 82550-TC; 82553; 82607-90; 82746-90; 83036-90; 83605; 83880-TC; 84484-TC; 85025-TC; 85610-TC; 85730-TC; 87086-90; 90799; 93005; 93925-TC; 93970-TC-50; 94760; 96375; J1200; J1630; J1940; J1956; J2060; J3370; X7704; Z7610